=== PATIENT | female | born 2000 | race Caucasian/White ===

== ENCOUNTER → 2020-08-04 11:53 | Outpatient (BNVA) | payer MEDICAID, SELFPAY | PROVIDERS: Visit Provider Obstetrics & Gynecology | DX: Z32.01 Encounter for pregnancy test, result positive (principal) | CPT/HCPCS: 99202 ==

== ENCOUNTER → 2020-08-05 14:45 | Outpatient (BNVA) | payer MEDICAID, SELFPAY | PROVIDERS: Visit Provider Obstetrics & Gynecology ==

== ENCOUNTER 2020-08-10 14:50 | Outpatient (REF) | payer MEDICAID, SELFPAY ==
--- NOTE | ~2020-08-10 | US_ITS ---
EXAMINATION: US OBSTETRICAL ULTRASOUND CLINICAL INFORMATION: Question ectopic . COMPARISON: None. LMP: 06/24/2020. Gestational age by maternal dates is 6 weeks and 5 days. Estimated date of delivery by maternal dates is 03/31/2021. TECHNIQUE: Ultrasound of the maternal pelvis is performed using transabdominal transducer. M-mode Doppler is also performed. FINDINGS: There is a single intrauterine gestational sac with visible yolk sac, embryo/fetus, and cardiac activity. There is no significant subchorionic hemorrhage or hematoma. HR: 142 beats per minute. CRL (crown rump length): 0.59 cm (6 weeks and 3 days +/- 4 days). JUWAN (estimated date of delivery): 04/02/2021 +/- 4 days. MATERNAL ADNEXA: The right maternal ovary measures 1.4 x 1.1 x 1.0 cm. The left maternal ovary measures 2.5 x 1.8 x 1.4 cm. There is no significant maternal adnexal mass. No maternal pelvic ascites. US/US OB <= 14 weeks fetus IMPRESSION: 1. Single intrauterine gestation with ultrasound gestational age of 6 weeks and 3 days +/- 4 days. 2. Estimated date of delivery is 04/02/2021 +/- 4 days. 3. No maternal adnexal mass or pelvic ascites.
== END 2020-08-10 14:51 | disposition home or self-care (01) ==
LOC: HO.US 14:50
PROVIDERS: Visit Provider Obstetrics & Gynecology
DX: O26.891 Other specified pregnancy related conditions, first trimester (principal); R10.9 Unspecified abdominal pain; Z3A.01 Less than 8 weeks gestation of pregnancy; Z64.0 Problems related to unwanted pregnancy
CPT/HCPCS: 76801

== ENCOUNTER → 2020-09-03 11:15 | Day surgery (SDC) | payer MEDICAID, SELFPAY ==
--- NOTE | 2020-09-03 11:43 | PC.NURSE ---
Patient reports eating ramen noodles at 8am. Anesthesia Vince & Dr Nguyễn notified. Case to be cancelled. Patient notified by Ansley
== END | disposition home or self-care (01) ==
PROVIDERS: Visit Provider Obstetrics & Gynecology
DX: Z33.2 Encounter for elective termination of pregnancy (principal); Z53.8 Procedure and treatment not carried out for other reasons

== ENCOUNTER 2021-02-01 23:03 | Emergency (ER) | payer OTHER, MEDICAID, SELFPAY ==
[2021-02-01 23:49] VITALS: BP 101/55; PULSE 77; RESP 16; TEMP 36.8; O2SAT 99; BMI 25.4
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
--- NOTE | 2021-02-02 00:27 | PC.NURSE ---
Reviewed Discharge instructions and medications. Pt verbalized understanding. pt discharge home. No distress at discharge.
== END 2021-02-02 00:28 | disposition home or self-care (01) ==
PROVIDERS: Emergency Provider Emergency Medicine
DX: M54.50 Low back pain, unspecified (principal); Z79.899 Other long term (current) drug therapy
CPT/HCPCS: 99283; 99284

== ENCOUNTER 2022-04-26 10:41 | Emergency (ER) | payer MEDICAID, SELFPAY ==
[2022-04-26 10:46] VITALS: BP 143/103; PULSE 112; RESP 18; TEMP 37.1; O2SAT 100; BMI 22.0
--- NOTE | 2022-04-26 10:50 | ECG_ITS ---
Test Reason : CP Blood Pressure : / mmHG Vent. Rate : 113 BPM Atrial Rate : 113 BPM P-R Int : 140 ms QRS Dur : 076 ms QT Int : 338 ms P-R-T Axes : 078 099 000 degrees QTc Int : 463 ms Sinus tachycardia Right atrial enlargement Rightward axis Nonspecific ST and T wave abnormality Abnormal ECG No previous ECGs available Referred By: Generic ED Physician Electronically Signed By:CON GALINDO
[2022-04-26 11:11] LABS: Basophils Percent Auto 0.3 % (0-2); Eosinophils Absolute Auto 0.1 X10*3/uL (0.0-0.4); Eosinophils Percent Auto 0.5 % (0-4); Hematocrit 44.3 % (37.0-47.0); Hemoglobin 15.3 g/dl (12.0-16.0); Imm Gran Abs Auto 0.05 X10*3/uL (0.00-0.03); Imm Gran Pct Auto 0.3 % (0.0-0.4); Lymphocytes Absolute Auto 0.4 X10*3/uL (1.2-4.9); Lymphocytes Percent Auto 2.7 % (20-40); MANUAL DIFF FLAG SCAN; Mean Corpuscular HGB Conc 34.5 g/dl (31.0-35.0); Mean Corpuscular Hemoglobin 30.4 pg (27.0-33.0); Mean Corpuscular Volume 87.9 fL (80.0-98.0); Mean Platelet Volume 8.9 fL (9.4-12.3); Monocytes Absolute Auto 0.5 X10*3/uL (0.1-1.2); Monocytes Percent Auto 3.5 % (2-11); Neutrophils Absolute Auto 14.1 x10*3/uL (2.0-8.3); Neutrophils Percent Auto 92.7 % (45-73); Platelet Count 460 X10*3/uL (160-400); Red Blood Count 5.04 X10*6/uL (4.20-5.50); Red Cell Distribution Width 12.1 % (11.0-16.0); SCAN SMEAR FLAG 1; White Blood Count 15.2 X10*3/uL (4.8-10.8)
[2022-04-26 11:35] LABS: Alanine Aminotransferase 14 U/L (0-31); Albumin Level 4.9 g/dL (3.5-5.0); Alkaline Phosphatase 62 U/L (39-117); Anion Gap 19 (12-20); Aspartate Amino Transferase 19 U/L (5-31); Bilirubin Direct 0.2 mg/dL (0.0-0.5); Bilirubin Total 0.9 mg/dL (0.0-1.0); Blood Urea Nitrogen 15 mg/dL (9-16); Calcium 10.4 mg/dL (8.4-10.2); Carbon Dioxide 18 mmol/L (22-29); Chloride 107 mmol/L (96-108); Creatinine Clr Calc Pharmacy 73.1; Estimated Glomerular Filt Rate > 60; Glucose Random 118 mg/dL (60-115); Lipase 23 U/L (8-78); Sodium 140 mmol/L (135-145); Total Protein 8.3 g/dL (6.5-8.0)
[2022-04-26 11:36] LABS: SLIDE REVIEW VERIFIED
[2022-04-26 11:37] LABS: HCG Quantitative < 2 mIU/mL; Troponin-I High Sensitivity < 3.5 ng/L (<3.5-17.0)
[2022-04-26 12:29] VITALS: BP 96/58; PULSE 110; RESP 22; O2SAT 99
[2022-04-26] MEDS: 0.9 % Sodium Chloride 1,000 ML 999 ML IVCONT (13:17)
[2022-04-26] MEDS: ondansetron HCL 4 MG/2 ML VIAL IVPUSH (13:18)
[2022-04-26] MEDS: diphenhydrAMINE HCL 50 MG/ML VIAL 25 MG IVPUSH (13:19)
[2022-04-26] MEDS: Ketorolac Tromethamine 30 MG/ML VIAL IVPUSH (13:19)
--- NOTE | 2022-04-26 13:26 | PC.NURSE ---
Pt medicated as charted. Ice chips given. Sister at bedside, warm blanket provided
--- NOTE | 2022-04-26 13:55 | ED.ABDPAIN ---
HPI - Abdominal Pain General Chief Complaint: Abdominal Pain Stated Complaint: N/V/D Time Seen by Provider: 04/26/22 11:44 Source: patient and family Mode of arrival: ambulatory Limitations: no limitations History of Present Illness HPI narrative: 21yoF with no Sig PMHx who is presenting to the ER with complaints of sudden onset of nausea/vomiting/diarrhea with diffuse abdominal pain that radiates up to her chest that started around 04:00 prior to arrival. Reports that her friend at bedside had similar symptoms yesterday and was actually seen here and diagnosed gastroenteritis. She reports associated chills. She denies any measured fevers, dizziness, neck pain/stiffness, sore throat, nasal congestion, cough, palpitations, paresthesias, back pain, flank pain, dysuria, hematuria, abnormal vaginal discharge, black or bloody stools, constipation, possible bad food exposure, recent antibiotic usage, recent travel or any other symptoms complaints or concerns at this time. MD elicited complaint: abdominal pain Pertinent past history: none Onset (ago): hour(s) (Since 04:00 prior to arrive) Pain Consistency: constant Location: diffuse Severity: mild Quality: cramping Radiation: chest Migration to: no migration Exacerbating factors: eating Relieving factors: nothing Context: sick contacts (Friend at bedside was seen here yesterday for same complaint and had similar symptoms) Associated symptoms: nausea, vomiting, diarrhea and chills Related Data Previous Rx's Medication Instructions Recorded acetaminophen 650 mg 650 mg PO Q8H #60 tabs 09/02/20 tablet,extended release ibuprofen 800 mg tablet 800 mg PO Q8H #60 tabs 09/02/20 oxycodone 5 mg capsule 5 mg PO Q6H PRN pain #10 caps 09/02/20 cyclobenzaprine 10 mg tablet 10 mg PO TID PRN pain #18 tabs 02/02/21 ibuprofen 400 mg tablet 400 mg PO Q6H PRN pain #28 tabs 02/02/21 diphenhydramine HCl 25 mg capsule 25 mg PO Q8H PRN nausea and 04/26/22 (Benadryl) vomiting #14 caps ketorolac 10 mg tablet 10 mg PO Q8H #14 tabs 04/26/22 ondansetron HCl 4 mg tablet 4 mg PO Q8H #14 tabs 04/26/22 Allergies Allergy/AdvReac Type Severity Reaction Status Date / Time No Known Allergies Allergy Verified 08/05/20 14:45 Review of Systems Review of Systems Constitutional : No Fever, + Chills, No Night Sweats, + Fatigue, + Malaise Cardiovascular : No Chest Pain, No SOB Respiratory : No Cough, No Sputum, No Wheezing, No Dyspnea Gastrointestinal : + Nausea, + Vomiting, + Diarrhea, + abdominal Pain, No Hematochezia, No Melena Genitourinary : No irregular bleeding, No Dysuria, No Urinary Frequency, No Hematuria,No Urinary Incontinence, No Urgency, No Flank Pain Musculoskeletal : No joint pain, + Myalgias, No Joint Swelling Skin : No Skin Lesions, No rash Neuro : No Weakness, No Numbness, No Paresthesias, No Loss of Consciousness, No Dizziness, No Headache Heme/Lymph: No Lymphadenopathy Endocrine : No Temperature Intolerance Yes all other systems are reviewed and are negative [facility] Past Medical History Attestation statement: The following information was validated with the patient. Source: old records reviewed, obtained from family and nursing notes reviewed Family History Family History Mother Cancer Social History Social History Alcohol intake: current Alcohol intake frequency: holidays/special occasions only Patient Tobacco Use Status: Never used Tobacco Smoked in Last 30 Days: No Use of substances other than those prescribed or required for medical reasons: Yes Substance Use Type: Marijuana Advance Directives: No Advance Directives Information Provided: Yes Physical Exam ED Vital Signs: Vital Signs - 24 hr 04/26/22 10:46 04/26/22 12:29 04/26/22 14:11 Temperature 98.7 F 98.1 F Pulse Rate 112 H 110 H 89 Respiratory Rate 18 22 H 16 Blood Pressure 143/103 H 96/58 L 99/55 L Pulse Oximetry 100 99 98 Oxygen Delivery Method Room Air Room Air Room Air BMI result Body Mass Index 22.0 Vital signs have been reviewed blood pressure hypertensive 143/103. Patient tachycardic at 112. Otherwise all other vitals are within normal limits. Appearance: Alert. Oriented X3. No acute distress. Head: Normal external exam. Normocephalic. Eyes: PERRLA. EOMI. Conjunctiva and sclera normal. Eyelids normal. ENT: Pharynx normal. Uvula midline. Moist mucous membranes. No trismus noted. No drooling noted. No muffled voice noted. Neck: Normal inspection. Neck supple. FROM. No adenopathy. No meningeal signs. CVS: Normal heart rate and rhythm. Heart sound normal. No murmurs noted. Pulses normal throughout. Respiratory: No respiratory distress. Painless inspiration. Breath sounds normal. No wheezes/rales/rhonchi noted. Chest nontender. No accessory muscle usage noted or decreased air movement noted. Abdomen: Soft and nontender. Nondistended. No guarding. No rigidity. Bowel sounds normal in all 4 quadrants. No distention noted. No organomegaly noted. No visible injury noted. No rebound tenderness. Negative Rovsing sign. Negative obturator's sign. Negative psoas sign. Negative Nagel sign. Back: No CVA tenderness. Full range of motion noted. Skin: Skin warm and dry. Normal skin color. Normal skin turgor. No rashes/lesions/lacerations noted. Extremities: Extremities exhibit normal range of motion. Extremities nontender. Neuro: Oriented X 3. No motor deficit. No sensory deficit. Reflexes normal. Normal steady gait. CN's II-XII intact bilaterally? Course Course Course Narrative: 13pm - 21yoF with no Sig PMHx who is presenting to the ER with complaints of sudden onset of nausea/vomiting/diarrhea with diffuse abdominal pain that radiates up to her chest that started around 04:00 prior to arrival. Reports that her friend at bedside had similar symptoms yesterday and was actually seen here and diagnosed gastroenteritis. She reports associated chills. She denies any measured fevers, dizziness, neck pain/stiffness, sore throat, nasal congestion, cough, palpitations, paresthesias, back pain, flank pain, dysuria, hematuria, abnormal vaginal discharge, black or bloody stools, constipation, possible bad food exposure, recent antibiotic usage, recent travel or any other symptoms complaints or concerns at this time. This patient presents with nausea, vomiting & diarrhea. Differential diagnoses includes possible acute gastroenteritis. Abdominal exam without peritoneal signs. Currently euvolemic without evidence of dehydration. No evidence of surgical abdomen or other acute medical emergency including bowel obstruction, viscus perforation, vascular catastrophe, atypical appendicitis, acute cholecystitis at this time. Presentation not consistent with other acute, emergent causes of vomiting / diarrhea at this time. No indication for abdominal imaging. Labs reviewed due to they were obtained while she was in triage and patient with leukocytosis of 15,000, platelet count 101718, carbon dioxide 18, random glucose 118, calcium 10.4, total protein 8.3. Otherwise all other labs are within normal limits. Plan: Will add COVID/RSV/flu swab. Provide symptomatic treatment with IV fluids, 4 mg of Zofran, 25 mg of Benadryl and 30 mg of IV Toradol and re-evaluate. Reevaluation(s) Reevaluation #1: Patient negative for COVID/RSV/flu. Reports she feels much better is requesting to go home she does not want to be admitted. She is tolerating p.o. fluids. Will DC home with symptomatic treatment for gastroenteritis and instructions return if any new or worsening symptoms. Patient understands agrees with this plan. Time: 15:00 Medical Decision Making Lab Data MDM Lab Attestation statement: I reviewed the patient's lab results. 04/26/22 10:59 04/26/22 10:59 Labs: Lab Results 04/26/22 04/26/22 04/26/22 Range/Units 10:59 10:59 10:59 WBC 15.2 H (4.8-10.8) X10*3/uL RBC 5.04 (4.20-5.50) X10*6/uL Hgb 15.3 (12.0-16.0) g/dl Hct 44.3 (37.0-47.0) % MCV 87.9 (80.0-98.0) fL MCH 30.4 (27.0-33.0) pg MCHC 34.5 (31.0-35.0) g/dl RDW 12.1 (11.0-16.0) % Plt Count 460 H (160-400) X10*3/uL MPV 8.9 L (9.4-12.3) fL Immature Gran % (Auto) 0.3 (0.0-0.4) % Neut % (Auto) 92.7 H (45-73) % Lymph % (Auto) 2.7 L (20-40) % [place] % (Auto) 3.5 (2-11) % Eos % (Auto) 0.5 (0-4) % Baso % (Auto) 0.3 (0-2) % Lymph # (Auto) 0.4 L (1.2-4.9) X10*3/uL [place] # (Auto) 0.5 (0.1-1.2) X10*3/uL Eos # (Auto) 0.1 (0.0-0.4) X10*3/uL Baso # (Auto) 0.0 (0.0-0.2) X10*3/uL Abs Immat Gran (auto) 0.05 H (0.00-0.03) X10*3/uL Absolute Neuts (auto) 14.1 H (2.0-8.3) x10*3/uL Absolute Nucleated RBC 0.000 (0.0-0.012) X10*3/uL Nucleated RBC % (auto) 0.0 (0.0-0.2) /100WBC Smear Tech's Comments VERIFIED Sodium 140 (135-145) mmol/L Potassium 4.0 (3.3-5.1) mmol/L Chloride 107 (96-108) mmol/L Carbon Dioxide 18 L (22-29) mmol/L Anion Gap 19 (12-20) BUN 15 (9-16) mg/dL Creatinine 0.83 (0.5-1.4) mg/dL Estim Creat Clear Calc 73.1 Estimated GFR > 60 Random Glucose 118 H (60-115) mg/dL Calcium 10.4 H (8.4-10.2) mg/dL Total Bilirubin 0.9 (0.0-1.0) mg/dL Direct Bilirubin 0.2 (0.0-0.5) mg/dL AST 19 (5-31) U/L ALT 14 (0-31) U/L Alkaline Phosphatase 62 (39-117) U/L Troponin I High Sens < 3.5 (<3.5-17.0) ng/L Total Protein 8.3 H (6.5-8.0) g/dL Albumin 4.9 (3.5-5.0) g/dL Lipase 23 (8-78) U/L Beta HCG, Quant < 2 mIU/mL Urine Color Urine Appearance Urine pH (5.0-9.0) Ur Specific [place] (1.005-1.025) Urine Protein (Neg-Trace) mg/dL Urine Glucose (UA) (Negative) mg/dL Urine Ketones (Negative) mg/dL Urine Blood (Negative) Urine Nitrite (Negative) Ur Leukocyte Esterase (Negative) Urine RBC (0-2) /HPF Urine WBC (0-5) /HPF Ur Squamous Epith Cells (0-2) /HPF Urine Bacteria (None Seen) Hyaline Casts (0-2) /LPF Influenza Type A (PCR) (Negative) Influenza Type B (PCR) (Negative) RSV RNA Qual (PCR) (Negative) SARS-CoV-2 RNA (RT-PCR) (Negative) 04/26/22 04/26/22 Range/Units 13:20 14:14 WBC (4.8-10.8) X10*3/uL RBC (4.20-5.50) X10*6/uL Hgb (12.0-16.0) g/dl Hct (37.0-47.0) % MCV (80.0-98.0) fL MCH (27.0-33.0) pg MCHC (31.0-35.0) g/dl RDW (11.0-16.0) % Plt Count (160-400) X10*3/uL MPV (9.4-12.3) fL Immature Gran % (Auto) (0.0-0.4) % Neut % (Auto) (45-73) % Lymph % (Auto) (20-40) % [place] % (Auto) (2-11) % Eos % (Auto) (0-4) % Baso % (Auto) (0-2) % Lymph # (Auto) (1.2-4.9) X10*3/uL [place] # (Auto) (0.1-1.2) X10*3/uL Eos # (Auto) (0.0-0.4) X10*3/uL Baso # (Auto) (0.0-0.2) X10*3/uL Abs Immat Gran (auto) (0.00-0.03) X10*3/uL Absolute Neuts (auto) (2.0-8.3) x10*3/uL Absolute Nucleated RBC (0.0-0.012) X10*3/uL Nucleated RBC % (auto) (0.0-0.2) /100WBC Smear Tech's Comments Sodium (135-145) mmol/L Potassium (3.3-5.1) mmol/L Chloride (96-108) mmol/L Carbon Dioxide (22-29) mmol/L Anion Gap (12-20) BUN (9-16) mg/dL Creatinine (0.5-1.4) mg/dL Estim Creat Clear Calc Estimated GFR Random Glucose (60-115) mg/dL Calcium (8.4-10.2) mg/dL Total Bilirubin (0.0-1.0) mg/dL Direct Bilirubin (0.0-0.5) mg/dL AST (5-31) U/L ALT (0-31) U/L Alkaline Phosphatase (39-117) U/L Troponin I High Sens (<3.5-17.0) ng/L Total Protein (6.5-8.0) g/dL Albumin (3.5-5.0) g/dL Lipase (8-78) U/L Beta HCG, Quant mIU/mL Urine Color Dark Yellow Urine Appearance Cloudy Urine pH 5.5 (5.0-9.0) Ur Specific [place] >= 1.030 H (1.005-1.025) Urine Protein 100 (2+) H (Neg-Trace) mg/dL Urine Glucose (UA) Negative (Negative) mg/dL Urine Ketones >=160 (Negative) mg/dL Urine Blood Negative (Negative) Urine Nitrite Negative (Negative) Ur Leukocyte Esterase Trace H (Negative) Urine RBC 3-5 H (0-2) /HPF Urine WBC 0-5 (0-5) /HPF Ur Squamous Epith Cells 11-20 (0-2) /HPF Urine Bacteria Trace (None Seen) Hyaline Casts 3-5 (0-2) /LPF Influenza Type A (PCR) NEGATIVE (Negative) Influenza Type B (PCR) NEGATIVE (Negative) RSV RNA Qual (PCR) NEGATIVE (Negative) SARS-CoV-2 RNA (RT-PCR) NEGATIVE (Negative) Independent Historian Clinical information obtained from an independent historian. History obtained from or confirmed by: Friend Prescription Management I considered prescription management with: Pain Medication Medications Administered Discontinued Medications Generic Name Dose Route Start Last Admin Trade Name Freq PRN Reason Stop Dose Admin Diphenhydramine HCl 25 mg 04/26/22 13:07 04/26/22 13:19 Diphenhydramine Hcl 50 Mg/Ml Vial IVPUSH 04/26/22 13:08 25 mg ONCE ONE Administration Sodium Chloride 1,000 mls @ 999 mls/hr 04/26/22 13:00 04/26/22 14:51 Ns IVCONT 04/26/22 14:00 Infused .Q1H1M MARISA Infusion Ketorolac Tromethamine 30 mg 04/26/22 13:07 04/26/22 13:19 Ketorolac Tromethamine 30 Mg/Ml Vial IVPUSH 04/26/22 13:08 30 mg ONCE ONE Administration Ondansetron HCl 4 mg 04/26/22 13:00 04/26/22 13:18 Ondansetron Hcl 4 Mg/2 Ml Vial IVPUSH 04/26/22 13:01 4 mg ONCE ONE Administration Discharge Plan Discharge Clinical Impression: Gastroenteritis Patient Disposition: Home, Self-Care Instructions: Gastroenteritis (ED) Prescriptions: New ondansetron HCl 4 mg tablet 4 mg PO Q8H Qty: 14 0RF diphenhydramine HCl [Benadryl] 25 mg capsule 25 mg PO Q8H PRN (Reason: nausea and vomiting) Qty: 14 0RF ketorolac 10 mg tablet 10 mg PO Q8H Qty: 14 0RF Rx Instructions: First dose given in the ER by IV and patient tolerated well No Action ibuprofen 800 mg tablet 800 mg PO Q8H Qty: 60 1RF acetaminophen 650 mg tablet extended release 650 mg PO Q8H Qty: 60 1RF oxycodone 5 mg capsule 5 mg PO Q6H PRN (Reason: pain) Qty: 10 0RF Rx Instructions: Take in addition to ibuprofen and tylenol as needed for breakthrough pain ibuprofen 400 mg tablet 400 mg PO Q6H PRN (Reason: pain) Qty: 28 0RF cyclobenzaprine 10 mg tablet 10 mg PO TID PRN (Reason: pain) Qty: 18 0RF Rx Instructions: side effect is drowsiness. Do not take at work or while driving. Referrals: Physician,Unknown J [Primary Care Provider] - (your pcp as needed)
[2022-04-26 14:07] LABS: Influenza A PCR NEGATIVE (Negative); Influenza B PCR NEGATIVE (Negative); Resp Syncy Virus RNA Qual PCR NEGATIVE (Negative); SARS COV2 PCR INHOUSE NEGATIVE (Negative)
[2022-04-26 14:11] VITALS: BP 99/55; PULSE 89; RESP 16; TEMP 36.7; O2SAT 98
[2022-04-26 14:21] LABS: Appearance Urine Cloudy; Color Urine Dark Yellow; Glucose Urine UA Negative (Negative); Leukocyte Esterase Urine Trace (Negative); Nitrite Urine Negative (Negative); PH 5.5 (5.0-9.0); Specific Gravity - Urine >= 1.030 (1.005-1.025); UMIC TRIGGER UACC YES; Urine Blood Negative (Negative); Urine Ketones >=160 mg/dL (Negative); Urine Protein 100 (2+) mg/dL (Neg-Trace)
[2022-04-26 14:24] LABS: Bacteria Urine Trace (None Seen); WBC Urine 0-5 /HPF (0-5)
--- NOTE | 2022-04-26 14:54 | PC.NURSE ---
report received from SARITHA Early Pt resting comfortably on stretcher 0/10 pain, states she is ready to go. GLENDA cui
== END 2022-04-26 15:24 | disposition home or self-care (01) ==
PROVIDERS: Physician Assistant Medical; Emergency Provider Emergency Medicine
DX: K52.9 Noninfective gastroenteritis and colitis, unspecified (principal); R11.2 Nausea with vomiting, unspecified; Z20.822 Contact with and (suspected) exposure to COVID-19; Z20.828 Contact with and (suspected) exposure to other viral communicable diseases; F12.90 Cannabis use, unspecified, uncomplicated
CPT/HCPCS: 0241U; 36415; 80053; 81001; 82248; 83690; 84484; 84702; 85025; 93005; 96361; 96374; 96375; 99284; 99285; J1200; J1885; J2405

== ENCOUNTER 2022-05-10 15:43 | Emergency (ER) | payer MEDICAID, SELFPAY ==
[2022-05-10 15:48] VITALS: BP 101/62; PULSE 82; RESP 18; TEMP 36.6; O2SAT 98; BMI 22.0
--- NOTE | 2022-05-10 15:51 | ED_ITS ---
HPI - Abdominal Pain General Chief Complaint: Abdominal Pain <Ivon Gallo CNP - Last Filed: 05/10/22 15:54> Stated Complaint: Abdominal pain/Vomiting <Ivon Gallo CNP - Last Filed: 05/10/22 15:54> Time Seen by Provider: 05/10/22 18:14 <Ivon Gallo CNP - Last Filed: 05/10/22 15:54> Source: patient <Charly PedersonDO anika - Last Filed: 05/10/22 18:24> Mode of arrival: ambulatory <Charly Butt DO - Last Filed: 05/10/22 18:24> Limitations: no limitations <Charly Butt DO - Last Filed: 05/10/22 18:24> History of Present Illness HPI narrative: 20-year-old female presents to the emergency room complaining of 2 days of epigastric pain patient states that today she [facility] something with again it in she started having vomiting and diarrhea. States her most recent episode of diarrhea was 2 hours ago. Most recent episode of vomiting was 2 hours ago no bloody non green not black. Patient denies fevers chills she states her pain is subsided and she has been here for several hours she denies any falls cough fever <Charly Butt DO - Last Filed: 05/10/22 18:24> MD elicited complaint: abdominal pain <Charly Butt DO - Last Filed: 05/10/22 18:24> Related Data Home Medications: Previous Rx's Medication Instructions Recorded acetaminophen 650 mg 650 mg PO Q8H #60 tabs 09/02/20 tablet,extended release ibuprofen 800 mg tablet 800 mg PO Q8H #60 tabs 09/02/20 oxycodone 5 mg capsule 5 mg PO Q6H PRN pain #10 caps 09/02/20 cyclobenzaprine 10 mg tablet 10 mg PO TID PRN pain #18 tabs 02/02/21 ibuprofen 400 mg tablet 400 mg PO Q6H PRN pain #28 tabs 02/02/21 diphenhydramine HCl 25 mg capsule 25 mg PO Q8H PRN nausea and 04/26/22 (Benadryl) vomiting #14 caps ketorolac 10 mg tablet 10 mg PO Q8H #14 tabs 04/26/22 ondansetron HCl 4 mg tablet 4 mg PO Q8H #14 tabs 04/26/22 ondansetron 4 mg disintegrating 4 mg PO Q6H #14 tabs 05/10/22 tablet <Ivon Gallo CNP - Last Filed: 05/10/22 15:54> Allergies/Adverse Reactions: Allergies Allergy/AdvReac Type Severity Reaction Status Date / Time No Known Allergies Allergy Verified 08/05/20 14:45 <Ivon Gallo CNP - Last Filed: 05/10/22 15:54> Review of Systems Review of Systems Review of systems: General: Patient denies any fever chills recent illness or falls Musculoskeletal: Denies back pain or body aches or other injuries HEENT: denies headache, runny nose, ear pain Respiratory: denies shortness of breath, cough Cardiovascular: no chest pain or palpitations : denies dysuria, frequency Abdomen: no nausea vomiting denies abdominal pain Extremities: no swelling, no pain Skin: no diaphoresis <Charly Butt DO - Last Filed: 05/10/22 18:24> Yes all other systems are reviewed and are negative <Charly Butt DO - Last Filed: 05/10/22 18:24> [facility] Family History Family History: Family History Mother Cancer <Ivon Gallo CNP - Last Filed: 05/10/22 15:54> Social History Social History: Social History Alcohol intake: current Alcohol intake frequency: holidays/special occasions only Patient Tobacco Use Status: Never used Tobacco Substance Use Type: Marijuana Advance Directives: No Advance Directives Information Provided: No <Ivon Gallo CNP - Last Filed: 05/10/22 15:54> Physical Exam ED Vital Signs: Vital Signs - 24 hr 05/10/22 15:48 Temperature 97.9 F Pulse Rate 82 Respiratory Rate 18 Blood Pressure 101/62 Pulse Oximetry 98 Oxygen Delivery Method Room Air BMI result Body Mass Index 22.0 <Ivon Gallo CNP - Last Filed: 05/10/22 15:54> Vital Signs - 24 hr 05/10/22 15:48 Temperature 97.9 F Pulse Rate 82 Respiratory Rate 18 Blood Pressure 101/62 Pulse Oximetry 98 Oxygen Delivery Method Room Air BMI result Body Mass Index 22.0 <Charly Butt DO - Last Filed: 05/10/22 18:24> General: Well-appearing well-nourished in no signs of distress HEENT: Normocephalic atraumatic Neck: No signs of JVD, no masses no tenderness or lymphadenopathy Cardiovascular: Regular rate and rhythm Respiratory: Clear to auscultation bilaterally Abdomen: Soft nontender no masses Extremities: Normal pedal pulses no signs of edema Skin: Dry warm no rashes Back: No tenderness full ROM <Charly Butt DO - Last Filed: 05/10/22 18:24> Course Course Course Narrative: This is an RME: Additional HPI, ROS, PE not included below will be deferred to primary provider. Patient is a 21-year-old female presenting to the emergency department for evaluation of abdominal pain. Complaining of Upper abdominal pain, onset 2 days ago. Also reporting dysuria, recently treated for UTI, completed a course of antibiotics with complete resolution of symptoms until a few days ago. Had a single episode of vomiting that occurred just prior to arrival. LMP 04/10/2022. Plan: labs, urinalysis, viral testing <Ivon Gallo CNP - Last Filed: 05/10/22 15:54> Medical Decision Making Medical Decision Making [facility] Narrative: patient has a completely benign belly exam I think is likely gastritis just his patient's CT and I do feel comfortable discharging the patient home give her some Zofran Pepcid Maalox and have her follow-up with her doctor. <Charly Butt DO - Last Filed: 05/10/22 18:24> Differential Diagnosis Differential Diagnoses: The differential diagnosis associated with the presentation includes <Charly Butt DO - Last Filed: 05/10/22 18:24> acute abdominal injury gastroenteritis <Charly Butt DO - Last Filed: 05/10/22 18:24> Admission/Observation Consideration of admission/observation: Escalation of care including admission/observation considered <Charly Butt DO - Last Filed: 05/10/22 18:24> Lab Data [facility] Lab Attestation statement: I reviewed the patient's lab results. <Charly Butt, DO - Last Filed: 05/10/22 18:24> Result Diagrams: 05/10/22 15:59 05/10/22 15:59 <Ivon Gallo CNP - Last Filed: 05/10/22 15:54> Labs: Lab Results 05/10/22 05/10/22 05/10/22 Range/Units 15:57 15:57 15:59 WBC 11.1 H (4.8-10.8) X10*3/uL RBC 4.81 (4.20-5.50) X10*6/uL Hgb 14.1 (12.0-16.0) g/dl Hct 42.6 (37.0-47.0) % MCV 88.6 (80.0-98.0) fL MCH 29.3 (27.0-33.0) pg MCHC 33.1 (31.0-35.0) g/dl RDW 12.6 (11.0-16.0) % Plt Count 432 H (160-400) X10*3/uL MPV 8.6 L (9.4-12.3) fL Immature Gran % (Auto) 0.3 (0.0-0.4) % Neut % (Auto) 81.8 H (45-73) % Lymph % (Auto) 8.5 L (20-40) % [place] % (Auto) 6.6 (2-11) % Eos % (Auto) 2.3 (0-4) % Baso % (Auto) 0.5 (0-2) % Lymph # (Auto) 0.9 L (1.2-4.9) X10*3/uL [place] # (Auto) 0.7 (0.1-1.2) X10*3/uL Eos # (Auto) 0.3 (0.0-0.4) X10*3/uL Baso # (Auto) 0.1 (0.0-0.2) X10*3/uL Abs Immat Gran (auto) 0.03 (0.00-0.03) X10*3/uL Absolute Neuts (auto) 9.1 H (2.0-8.3) x10*3/uL Absolute Nucleated RBC 0.000 (0.0-0.012) X10*3/uL Nucleated RBC % (auto) 0.0 (0.0-0.2) /100WBC Sodium (135-145) mmol/L Potassium (3.3-5.1) mmol/L Chloride (96-108) mmol/L Carbon Dioxide (22-29) mmol/L Anion Gap (12-20) BUN (9-16) mg/dL Creatinine (0.5-1.4) mg/dL Estim Creat Clear Calc Estimated GFR Random Glucose (60-115) mg/dL Calcium (8.4-10.2) mg/dL Total Bilirubin (0.0-1.0) mg/dL AST (5-31) U/L ALT (0-31) U/L Alkaline Phosphatase (39-117) U/L Total Protein (6.5-8.0) g/dL Albumin (3.5-5.0) g/dL Lipase (8-78) U/L Urine Color Urine Appearance Urine pH (5.0-9.0) Ur Specific [place] (1.005-1.025) Urine Protein (Neg-Trace) mg/dL Urine Glucose (UA) (Negative) mg/dL Urine Ketones (Negative) mg/dL Urine Blood (Negative) Urine Nitrite (Negative) Ur Leukocyte Esterase (Negative) Urine RBC (0-2) /HPF Urine WBC (0-5) /HPF Ur Squamous Epith Cells (0-2) /HPF Urine Bacteria (None Seen) Hyaline Casts (0-2) /LPF Urine Test (NEGATIVE) COVID-19 ([place]) Negative (Negative) COVID-19 Clin Com See Note Influenza Type A ([place]) Negative (Negative) Influenza Type B ([place]GA) Negative (Negative) Influenza A & B Note See Note 05/10/22 05/10/22 05/10/22 Range/Units 15:59 16:06 16:06 WBC (4.8-10.8) X10*3/uL RBC (4.20-5.50) X10*6/uL Hgb (12.0-16.0) g/dl Hct (37.0-47.0) % MCV (80.0-98.0) fL MCH (27.0-33.0) pg MCHC (31.0-35.0) g/dl RDW (11.0-16.0) % Plt Count (160-400) X10*3/uL MPV (9.4-12.3) fL Immature Gran % (Auto) (0.0-0.4) % Neut % (Auto) (45-73) % Lymph % (Auto) (20-40) % [place] % (Auto) (2-11) % Eos % (Auto) (0-4) % Baso % (Auto) (0-2) % Lymph # (Auto) (1.2-4.9) X10*3/uL [place] # (Auto) (0.1-1.2) X10*3/uL Eos # (Auto) (0.0-0.4) X10*3/uL Baso # (Auto) (0.0-0.2) X10*3/uL Abs Immat Gran (auto) (0.00-0.03) X10*3/uL Absolute Neuts (auto) (2.0-8.3) x10*3/uL Absolute Nucleated RBC (0.0-0.012) X10*3/uL Nucleated RBC % (auto) (0.0-0.2) /100WBC Sodium 140 (135-145) mmol/L Potassium 4.0 (3.3-5.1) mmol/L Chloride 106 (96-108) mmol/L Carbon Dioxide 25 (22-29) mmol/L Anion Gap 13 (12-20) BUN 10 (9-16) mg/dL Creatinine 0.69 (0.5-1.4) mg/dL Estim Creat Clear Calc 87.9 Estimated GFR > 60 Random Glucose 80 (60-115) mg/dL Calcium 9.5 D (8.4-10.2) mg/dL Total Bilirubin 0.6 (0.0-1.0) mg/dL AST 17 (5-31) U/L ALT 13 (0-31) U/L Alkaline Phosphatase 48 (39-117) U/L Total Protein 6.9 (6.5-8.0) g/dL Albumin 4.2 (3.5-5.0) g/dL Lipase 54 (8-78) U/L Urine Color Dark Yellow Urine Appearance Turbid Urine pH 5.5 (5.0-9.0) Ur Specific [place] >= 1.030 H (1.005-1.025) Urine Protein 30 (1+) H (Neg-Trace) mg/dL Urine Glucose (UA) Negative (Negative) mg/dL Urine Ketones 15 (Negative) mg/dL Urine Blood Negative (Negative) Urine Nitrite Negative (Negative) Ur Leukocyte Esterase Trace H (Negative) Urine RBC 3-5 H (0-2) /HPF Urine WBC 11-20 H (0-5) /HPF Ur Squamous Epith Cells >20 (0-2) /HPF Urine Bacteria 4+ (None Seen) Hyaline Casts 0-2 (0-2) /LPF Urine Test NEGATIVE (NEGATIVE) COVID-19 ([place]) (Negative) COVID-19 Clin Com Influenza Type A ([place]) (Negative) Influenza Type B ([place]) (Negative) Influenza A & B Note <Ivon Gallo, [employer] ASSISTANT - Last Filed: 05/10/22 15:54> Lab Results 05/10/22 05/10/22 05/10/22 Range/Units 15:57 15:57 15:59 WBC 11.1 H (4.8-10.8) X10*3/uL RBC 4.81 (4.20-5.50) X10*6/uL Hgb 14.1 (12.0-16.0) g/dl Hct 42.6 (37.0-47.0) % MCV 88.6 (80.0-98.0) fL MCH 29.3 (27.0-33.0) pg MCHC 33.1 (31.0-35.0) g/dl RDW 12.6 (11.0-16.0) % Plt Count 432 H (160-400) X10*3/uL MPV 8.6 L (9.4-12.3) fL Immature Gran % (Auto) 0.3 (0.0-0.4) % Neut % (Auto) 81.8 H (45-73) % Lymph % (Auto) 8.5 L (20-40) % [place] % (Auto) 6.6 (2-11) % Eos % (Auto) 2.3 (0-4) % Baso % (Auto) 0.5 (0-2) % Lymph # (Auto) 0.9 L (1.2-4.9) X10*3/uL [place] # (Auto) 0.7 (0.1-1.2) X10*3/uL Eos # (Auto) 0.3 (0.0-0.4) X10*3/uL Baso # (Auto) 0.1 (0.0-0.2) X10*3/uL Abs Immat Gran (auto) 0.03 (0.00-0.03) X10*3/uL Absolute Neuts (auto) 9.1 H (2.0-8.3) x10*3/uL Absolute Nucleated RBC 0.000 (0.0-0.012) X10*3/uL Nucleated RBC % (auto) 0.0 (0.0-0.2) /100WBC Sodium (135-145) mmol/L Potassium (3.3-5.1) mmol/L Chloride (96-108) mmol/L Carbon Dioxide (22-29) mmol/L Anion Gap (12-20) BUN (9-16) mg/dL Creatinine (0.5-1.4) mg/dL Estim Creat Clear Calc Estimated GFR Random Glucose (60-115) mg/dL Calcium (8.4-10.2) mg/dL Total Bilirubin (0.0-1.0) mg/dL AST (5-31) U/L ALT (0-31) U/L Alkaline Phosphatase (39-117) U/L Total Protein (6.5-8.0) g/dL Albumin (3.5-5.0) g/dL Lipase (8-78) U/L Urine Color Urine Appearance Urine pH (5.0-9.0) Ur Specific [place] (1.005-1.025) Urine Protein (Neg-Trace) mg/dL Urine Glucose (UA) (Negative) mg/dL Urine Ketones (Negative) mg/dL Urine Blood (Negative) Urine Nitrite (Negative) Ur Leukocyte Esterase (Negative) Urine RBC (0-2) /HPF Urine WBC (0-5) /HPF Ur Squamous Epith Cells (0-2) /HPF Urine Bacteria (None Seen) Hyaline Casts (0-2) /LPF Urine Test (NEGATIVE) COVID-19 ([place]) Negative (Negative) COVID-19 Clin Com See Note Influenza Type A ([place]) Negative (Negative) Influenza Type B ([place]) Negative (Negative) Influenza A & B Note See Note 05/10/22 05/10/22 05/10/22 Range/Units 15:59 16:06 16:06 WBC (4.8-10.8) X10*3/uL RBC (4.20-5.50) X10*6/uL Hgb (12.0-16.0) g/dl Hct (37.0-47.0) % MCV (80.0-98.0) fL MCH (27.0-33.0) pg MCHC (31.0-35.0) g/dl RDW (11.0-16.0) % Plt Count (160-400) X10*3/uL MPV (9.4-12.3) fL Immature Gran % (Auto) (0.0-0.4) % Neut % (Auto) (45-73) % Lymph % (Auto) (20-40) % [place] % (Auto) (2-11) % Eos % (Auto) (0-4) % Baso % (Auto) (0-2) % Lymph # (Auto) (1.2-4.9) X10*3/uL [place] # (Auto) (0.1-1.2) X10*3/uL Eos # (Auto) (0.0-0.4) X10*3/uL Baso # (Auto) (0.0-0.2) X10*3/uL Abs Immat Gran (auto) (0.00-0.03) X10*3/uL Absolute Neuts (auto) (2.0-8.3) x10*3/uL Absolute Nucleated RBC (0.0-0.012) X10*3/uL Nucleated RBC % (auto) (0.0-0.2) /100WBC Sodium 140 (135-145) mmol/L Potassium 4.0 (3.3-5.1) mmol/L Chloride 106 (96-108) mmol/L Carbon Dioxide 25 (22-29) mmol/L Anion Gap 13 (12-20) BUN 10 (9-16) mg/dL Creatinine 0.69 (0.5-1.4) mg/dL Estim Creat Clear Calc 87.9 Estimated GFR > 60 Random Glucose 80 (60-115) mg/dL Calcium 9.5 D (8.4-10.2) mg/dL Total Bilirubin 0.6 (0.0-1.0) mg/dL AST 17 (5-31) U/L ALT 13 (0-31) U/L Alkaline Phosphatase 48 (39-117) U/L Total Protein 6.9 (6.5-8.0) g/dL Albumin 4.2 (3.5-5.0) g/dL Lipase 54 (8-78) U/L Urine Color Dark Yellow Urine Appearance Turbid Urine pH 5.5 (5.0-9.0) Ur Specific [place] >= 1.030 H (1.005-1.025) Urine Protein 30 (1+) H (Neg-Trace) mg/dL Urine Glucose (UA) Negative (Negative) mg/dL Urine Ketones 15 (Negative) mg/dL Urine Blood Negative (Negative) Urine Nitrite Negative (Negative) Ur Leukocyte Esterase Trace H (Negative) Urine RBC 3-5 H (0-2) /HPF Urine WBC 11-20 H (0-5) /HPF Ur Squamous Epith Cells >20 (0-2) /HPF Urine Bacteria 4+ (None Seen) Hyaline Casts 0-2 (0-2) /LPF Urine Test NEGATIVE (NEGATIVE) COVID-19 ([place]) (Negative) COVID-19 Clin Com Influenza Type A ([place]) (Negative) Influenza Type B ([place]) (Negative) Influenza A & B Note <Charly Butt DO - Last Filed: 05/10/22 18:24> Discharge Plan Discharge Clinical Impression: Abdominal pain, Vomiting <Ivon Gallo CNP - Last Filed: 05/10/22 15:54> Patient Disposition: Home, Self-Care <Ivon Gallo CNP - Last Filed: 05/10/22 15:54> Instructions: Acute Nausea and Vomiting (ED), Abdominal Pain (ED) <Ivon Gallo CNP - Last Filed: 05/10/22 15:54> Additional Instructions: Please call to follow up for your abdominal pain. Your labs were all nor mal. Please take zofran as needed for vomiting. <Ivon Gallo CNP - Last Filed: 05/10/22 15:54> Prescriptions: New ondansetron 4 mg tablet,disintegrating 4 mg PO Q6H Qty: 14 0RF No Action ibuprofen 800 mg tablet 800 mg PO Q8H Qty: 60 1RF acetaminophen 650 mg tablet extended release 650 mg PO Q8H Qty: 60 1RF oxycodone 5 mg capsule 5 mg PO Q6H PRN (Reason: pain) Qty: 10 0RF Rx Instructions: Take in addition to ibuprofen and tylenol as needed for breakthrough pain ondansetron HCl 4 mg tablet 4 mg PO Q8H Qty: 14 0RF diphenhydramine HCl [Benadryl] 25 mg capsule 25 mg PO Q8H PRN (Reason: nausea and vomiting) Qty: 14 0RF ketorolac 10 mg tablet 10 mg PO Q8H Qty: 14 0RF Rx Instructions: First dose given in the ER by IV and patient tolerated well ibuprofen 400 mg tablet 400 mg PO Q6H PRN (Reason: pain) Qty: 28 0RF cyclobenzaprine 10 mg tablet 10 mg PO TID PRN (Reason: pain) Qty: 18 0RF Rx Instructions: side effect is drowsiness. Do not take at work or while driving. <Ivon Gallo CNP - Last Filed: 05/10/22 15:54>
[2022-05-10 16:06] LABS: MANUAL DIFF FLAG NO
[2022-05-10 16:10] LABS: Basophils Absolute Auto 0.1 X10*3/uL (0.0-0.2); Basophils Percent Auto 0.5 % (0-2); Eosinophils Absolute Auto 0.3 X10*3/uL (0.0-0.4); Eosinophils Percent Auto 2.3 % (0-4); Hematocrit 42.6 % (37.0-47.0); Hemoglobin 14.1 g/dl (12.0-16.0); Imm Gran Abs Auto 0.03 X10*3/uL (0.00-0.03); Imm Gran Pct Auto 0.3 % (0.0-0.4); Lymphocytes Absolute Auto 0.9 X10*3/uL (1.2-4.9); Lymphocytes Percent Auto 8.5 % (20-40); Mean Corpuscular HGB Conc 33.1 g/dl (31.0-35.0); Mean Corpuscular Hemoglobin 29.3 pg (27.0-33.0); Mean Corpuscular Volume 88.6 fL (80.0-98.0); Mean Platelet Volume 8.6 fL (9.4-12.3); Monocytes Absolute Auto 0.7 X10*3/uL (0.1-1.2); Monocytes Percent Auto 6.6 % (2-11); Neutrophils Absolute Auto 9.1 x10*3/uL (2.0-8.3); Neutrophils Percent Auto 81.8 % (45-73); Platelet Count 432 X10*3/uL (160-400); Red Blood Count 4.81 X10*6/uL (4.20-5.50); Red Cell Distribution Width 12.6 % (11.0-16.0); White Blood Count 11.1 X10*3/uL (4.8-10.8)
[2022-05-10 16:16] LABS: Appearance Urine Turbid; Color Urine Dark Yellow; Glucose Urine UA Negative (Negative); Leukocyte Esterase Urine Trace (Negative); Nitrite Urine Negative (Negative); PH 5.5 (5.0-9.0); Specific Gravity - Urine >= 1.030 (1.005-1.025); UMIC TRIGGER UACC YES; Urine Blood Negative (Negative); Urine Ketones 15 mg/dL (Negative); Urine Protein 30 (1+) mg/dL (Neg-Trace)
[2022-05-10 16:23] LABS: COVID-19 Test Negative (Negative); IDNOW Serial# 55D5AD1C
[2022-05-10 16:25] LABS: Alanine Aminotransferase 13 U/L (0-31); Albumin Level 4.2 g/dL (3.5-5.0); Alkaline Phosphatase 48 U/L (39-117); Anion Gap 13 (12-20); Aspartate Amino Transferase 17 U/L (5-31); Bilirubin Total 0.6 mg/dL (0.0-1.0); Blood Urea Nitrogen 10 mg/dL (9-16); Calcium 9.5 mg/dL (8.4-10.2); Carbon Dioxide 25 mmol/L (22-29); Chloride 106 mmol/L (96-108); Creatinine Clr Calc Pharmacy 87.9; Estimated Glomerular Filt Rate > 60; Glucose Random 80 mg/dL (60-115); Lipase 54 U/L (8-78); Sodium 140 mmol/L (135-145); Total Protein 6.9 g/dL (6.5-8.0)
[2022-05-10 16:26] LABS: IDNOW Serial# 9DB6401D; Influenza B2 Negative (Negative)
[2022-05-10 16:27] LABS: Influenza A Negative (Negative)
[2022-05-10 16:33] LABS: UPreg QC Valid YES; Urine Pregnancy NEGATIVE (NEGATIVE)
[2022-05-10 16:39] LABS: Bacteria Urine 4+ (None Seen); Hyaline Casts Urine 0-2 /LPF (0-2); Squamous Epithelial Cell Urine >20 /HPF (0-2); UACC Culture Trigger YES
[2022-05-10 18:29] VITALS: BP 127/72; PULSE 89; RESP 16; TEMP 37; O2SAT 97
[2022-05-10] MEDS: Famotidine 20 MG TABLET PO (18:34)
[2022-05-10] MEDS: Magnesium Hydrox/Alum Hydrox 30 ML ORAL.SUSP PO (18:37)
[2022-05-10] MEDS: Ondansetron ODT 4 MG TAB.RAPDIS TRANSLINGU (18:37)
== END 2022-05-10 18:40 | disposition home or self-care (01) ==
PROVIDERS: Nurse Practitioner Family; Emergency Provider Student in an Organized Health Care Education/Training Program
DX: R10.13 Epigastric pain (principal); R11.2 Nausea with vomiting, unspecified; Z20.822 Contact with and (suspected) exposure to COVID-19; Z20.828 Contact with and (suspected) exposure to other viral communicable diseases; Z79.899 Other long term (current) drug therapy
CPT/HCPCS: 80053; 81001; 81025; 83690; 85025; 87086; 87502; 87635; 99283; 99284

== ENCOUNTER 2022-07-19 18:12 | Emergency (ER) | payer MEDICAID, SELFPAY ==
--- NOTE | ~2022-07-19 | XR_ITS ---
EXAMINATION: XR HAND, RIGHT CLINICAL INFORMATION: Fall with pain COMPARISON: None available. TECHNIQUE: PA, lateral, and oblique views of the right hand. FINDINGS: No fracture or dislocation. Alignment maintained. Joint spaces are maintained. The soft tissues appear unremarkable. XR/XR hand RT 2V IMPRESSION: No fracture or malalignment.
[2022-07-19 19:25] VITALS: BP 111/53; PULSE 69; RESP 20; TEMP 36.9; O2SAT 99; BMI 22.0
--- NOTE | 2022-07-19 19:26 | ED_ITS ---
HPI - Extremity Injury (Upper) General Chief Complaint: Extremity Injury, Upper Stated Complaint: finger injury Time Seen by Provider: 07/19/22 20:01 Source: patient Mode of arrival: ambulatory Limitations: no limitations History of Present Illness HPI narrative: 21 yo female healthy left hand dominant here with right hand pain after fall while play fighting today. No weakness, numbness, tingling of the hand Related Data Previous Rx's Medication Instructions Recorded acetaminophen 650 mg 650 mg PO Q8H #60 tabs 09/02/20 tablet,extended release ibuprofen 800 mg tablet 800 mg PO Q8H #60 tabs 09/02/20 oxycodone 5 mg capsule 5 mg PO Q6H PRN pain #10 caps 09/02/20 cyclobenzaprine 10 mg tablet 10 mg PO TID PRN pain #18 tabs 02/02/21 ibuprofen 400 mg tablet 400 mg PO Q6H PRN pain #28 tabs 02/02/21 diphenhydramine HCl 25 mg capsule 25 mg PO Q8H PRN nausea and 04/26/22 (Benadryl) vomiting #14 caps ketorolac 10 mg tablet 10 mg PO Q8H #14 tabs 04/26/22 ondansetron HCl 4 mg tablet 4 mg PO Q8H #14 tabs 04/26/22 ondansetron 4 mg disintegrating 4 mg PO Q6H #14 tabs 05/10/22 tablet cefuroxime axetil 250 mg tablet 250 mg PO BID 7 days #14 tabs 05/15/22 Allergies Allergy/AdvReac Type Severity Reaction Status Date / Time No Known Allergies Allergy Verified 07/19/22 19:25 Review of Systems Review of Systems: Yes all other systems are reviewed and are negative Constitutional: Constitutional: Reports no additional constitutional complaints, Denies body ache(s), Denies chills, Denies fever(s), Denies headache(s) and Denies weakness Eyes: Eyes: Reports no additional eye complaints and Denies change in vision ENT: Reports system reviewed and no additional complaints, except as documented, Denies dizziness, Denies headache(s), Denies nasal congestion, Denies nasal discharge and Denies neck pain Cardiovascular: Cardiovascular: Reports no additional cardiovascular complaints, Denies chest pain, Denies leg edema and Denies dyspnea Respiratory: Respiratory: Reports no additional respiratory complaints, Denies cough and Denies dyspnea Gastrointestinal: Gastrointestinal: Reports no additional gastrointestinal complaints, Denies abdominal pain, Denies diarrhea, Denies nausea and Denies vomiting Genitourinary: Genitourinary: Reports no additional female genitourinary complaints and Denies urinary incontinence Musculoskeletal: Musculoskeletal: Reports no additional musculoskeletal complaints, Denies back pain, Denies arthralgias, Denies joint swelling, Denies neck pain, Denies numbness and Denies tingling Integumentary/Breasts: Skin/Breast: Reports system reviewed and no additional complaints, except as docu and Denies rash Neurologic: Reports system reviewed and no additional complaints, except as documented, Denies Abnormal speech present, Denies dizziness, Denies headache(s), Denies numbness, Denies tingling and Denies weakness PMFSH Past Medical History Attestation statement: The following information was validated with the patient. Source: old records reviewed and nursing notes reviewed Family History Family History Mother Cancer Social History Social History Alcohol intake: current Alcohol intake frequency: does not drink Patient Tobacco Use Status: Never used Tobacco Substance Use Type: Marijuana Advance Directives: No Advance Directives Information Provided: No Physical Exam Vital Signs: Vital Signs: Last Vital Signs Temp 98.5 F 07/19/22 19:25 Pulse 69 07/19/22 19:25 Resp 20 07/19/22 19:25 BP 111/53 L 07/19/22 19:25 Pulse Ox 99 07/19/22 19:25 O2 Del Method Room Air 07/19/22 19:25 BMI result Body Mass Index 22.0 Const: General: cooperative, healthy appearing, comfortable and no acute distress Orientation/consciousness: patient oriented x3 Limitations: no limitations HEENT: Head: Yes normal to inspection Ears: hearing grossly normal bilaterally General nose exam: Normal external nose present Face and sinus: Yes normal facial exam Mouth: Normal oral and palatal mucosa present Throat: Yes posterior oropharynx normal Eyes: General: appearance normal, both eyes and all related structures Pupils: Equal, round and reactive pupils present Neck: Neck: Yes normal visual inspection Chest: Chest palpation & inspection: normal inspection of the chest Resp: Effort & Inspection: normal respiratory effort Auscultation: clear to auscultation bilaterally Cardio: Rate: regular rate Rhythm: regular rhythm Peripheral pulses: Peripheral pulses 2+ throughout GI: Inspection: Yes normal to inspection Palpation (GI): Soft to palpation and nontender Auscultation: normal bowel sounds Back/Spine/Pelvis: Thoracic/Lumbar Spine: thoracic and lumbar spine normal to inspection Skin: General skin exam: no rashes or lesions noted Neuro: General: patient oriented x3, no focal motor deficits and normal sensation to monofilament Cranial nerves: Yes Equal, round and reactive pupils present Cognition (Neuro): normal cognition Speech: No Abnormal sp eech present Gait exam (Neuro): Normal gait present Motor exam (neuro): 5/5 motor strength present throughout Extrem: Other: Tenderness on palpation over the right hand base of the 2nd/3rd digit with FROM. CMS intact distally Course Course Course Narrative: This is a rapid medical exam. Deferred additional HPI, ROS, PE to primary provider. 21 yo female healthy left hand dominant here with right hand pain after fall while play fighting today Will check x-rays VSS Reevaluation(s) Reevaluation #1: x-rays show no fracture, likely contusion. Recommend RICE, supportive care at home. Medical Decision Making Medical Decision Making MDM Narrative: 21 yo female healthy left hand dominant here with right hand pain after fall while play fighting today Will check x-rays Differential Diagnosis Differential Diagnoses: The differential diagnosis associated with the presentation includes fracture, contusion low concern for vascukar injury, tendon injury Independent Interpretation I performed an independent interpretation of an: Plain X-Ray Interpretation: I independently reviewed the x-ay agree with the radiologist report Radiology Impression Discussion of test interpretation with radiology: I have reviewed the radiologist's reading. Radiologist Impression: [address] [address] XRay Report Signed Patient: Ernestina Ortega MR#: [id number] : 2000 Acct:[id number] Age/Sex: 21 / F ADM Date: 07/19/22 Loc: HO.ED Attending Dr: Ordering Physician: Tessy Castañeda NP Date of Service: 07/19/22 Procedure(s): XR hand RT 2V Accession Number(s): [id number] cc: Maddy,Tessy OFFICE ASSISTANCE~ EXAMINATION: XR HAND, RIGHT CLINICAL INFORMATION: Fall with pain? COMPARISON: None available.? TECHNIQUE: PA, lateral, and oblique views of the right hand. FINDINGS: No fracture or dislocation. Alignment maintained. Joint spaces are maintained. The soft tissues appear unremarkable.? XR/XR hand RT 2V IMPRESSION: No fracture or malalignment. ? Discharge Plan Discharge Clinical Impression: Contusion of finger of right hand Patient Disposition: Home, Self-Care Instructions: Contusion in Adults (ED) Additional Instructions: Motrin or tylenol for pain ice to the area Prescriptions: No Action ibuprofen 800 mg tablet 800 mg PO Q8H Qty: 60 1RF acetaminophen 650 mg tablet extended release 650 mg PO Q8H Qty: 60 1RF oxycodone 5 mg capsule 5 mg PO Q6H PRN (Reason: pain) Qty: 10 0RF Rx Instructions: Take in addition to ibuprofen and tylenol as needed for breakthrough pain ondansetron HCl 4 mg tablet 4 mg PO Q8H Qty: 14 0RF diphenhydramine HCl [Benadryl] 25 mg capsule 25 mg PO Q8H PRN (Reason: nausea and vomiting) Qty: 14 0RF ketorolac 10 mg tablet 10 mg PO Q8H Qty: 14 0RF Rx Instructions: First dose given in the ER by IV and patient tolerated well ibuprofen 400 mg tablet 400 mg PO Q6H PRN (Reason: pain) Qty: 28 0RF cyclobenzaprine 10 mg tablet 10 mg PO TID PRN (Reason: pain) Qty: 18 0RF Rx Instructions: side effect is drowsiness. Do not take at work or while driving. ondansetron 4 mg tablet,disintegrating 4 mg PO Q6H Qty: 14 0RF cefuroxime axetil 250 mg tablet 250 mg PO BID 7 Days Qty: 14 0RF Interventions: ED Discharge Assessment Last Done: 07/19/22 20:14 Discharge Date/Time: 07/19/22 20:14
== END 2022-07-19 20:14 | disposition home or self-care (01) ==
LOC: HO.ED 20:13
PROVIDERS: Emergency Provider Emergency Medicine
DX: S60.00XA Contusion of unspecified finger without damage to nail, initial encounter (principal); W51.XXXA Accidental striking against or bumped into by another person, initial encounter; Y93.83 Activity, rough housing and horseplay; Y92.9 Unspecified place or not applicable; Y99.9 Unspecified external cause status
CPT/HCPCS: 73120; 99282; 99283

== ENCOUNTER 2022-10-15 21:32 | Emergency (ER) | payer MEDICAID, SELFPAY ==
--- NOTE | ~2022-10-15 | CT_ITS ---
EXAMINATION: CT ABDOMEN AND PELVIS WITH CONTRAST CLINICAL INFORMATION: Pain. COMPARISON: None available. TECHNIQUE: Multidetector volumetric images were obtained from the superior aspect of the liver through the pubic symphysis following administration 85 mL of Omnipaque 350 intravenous contrast. Sagittal and coronal reformatted images were obtained on the technologist's workstation. Oral contrast: No This CT examination was performed using dose optimization techniques as appropriate, variously including the following: *Automated exposure control *Adjustment of mA and/or kV according to patient size (this includes techniques or standardized protocols for targeted exams where dose is matched to indication/reason for exam; i.e. extremities or head) *Use of iterative reconstruction technique DLP: 324 mGy-cm FINDINGS: LUNG BASES: The visualized lung bases are unremarkable. LIVER, GALLBLADDER, AND BILIARY TREE: The liver is normal in size, shape, and attenuation. No focal hepatic lesion or biliary ductal dilatation is present. The gallbladder is unremarkable with no evidence of radiopaque gallstones, gallbladder wall thickening, or obvious pericholecystic inflammatory changes. PANCREAS: Unremarkable. SPLEEN: Unremarkable. ADRENAL GLANDS: Unremarkable. KIDNEYS AND URETERS: The kidneys are normal in size, shape, and attenuation. No hydronephrosis, hydroureter, or calculi seen. No perinephric stranding. BLADDER: Unremarkable. GASTROINTESTINAL TRACT: The small and large bowel are unremarkable. The appendix is unremarkable. ABDOMINAL WALL: No significant hernia is appreciated. LYMPH NODES: Normal. VASCULAR: Unremarkable. PELVIC VISCERA: Unremarkable. There is a small amount of free fluid within the pelvis. OSSEOUS STRUCTURES: Unremarkable. CT/CT abdomen pelvis w IV con IMPRESSION: No significant abnormality. Fleischner guidelines were followed.
[2022-10-15 21:45] VITALS: BP 100/61; PULSE 79; RESP 17; TEMP 36.1; O2SAT 98; BMI 24.2
[2022-10-15 22:07] LABS: MANUAL DIFF FLAG NO
[2022-10-15 22:10] LABS: Basophils Percent Auto 0.4 % (0-2); Eosinophils Absolute Auto 0.1 X10*3/uL (0.0-0.4); Hematocrit 39.4 % (37.0-47.0); Hemoglobin 13.2 g/dl (12.0-16.0); Imm Gran Abs Auto 0.04 X10*3/uL (0.00-0.03); Imm Gran Pct Auto 0.4 % (0.0-0.4); Lymphocytes Absolute Auto 1.3 X10*3/uL (1.2-4.9); Lymphocytes Percent Auto 12.7 % (20-40); Mean Corpuscular HGB Conc 33.5 g/dl (31.0-35.0); Mean Corpuscular Hemoglobin 30.1 pg (27.0-33.0); Mean Platelet Volume 8.9 fL (9.4-12.3); Monocytes Absolute Auto 0.5 X10*3/uL (0.1-1.2); Monocytes Percent Auto 4.9 % (2-11); Neutrophils Percent Auto 80.6 % (45-73); Platelet Count 404 X10*3/uL (160-400); Red Blood Count 4.38 X10*6/uL (4.20-5.50); Red Cell Distribution Width 12.4 % (11.0-16.0)
[2022-10-15 22:37] LABS: Alanine Aminotransferase 16 U/L (0-31); Albumin Level 3.9 g/dL (3.5-5.0); Alkaline Phosphatase 47 U/L (39-117); Anion Gap 13 (12-20); Aspartate Amino Transferase 25 U/L (5-31); Bilirubin Total 0.3 mg/dL (0.0-1.0); Blood Urea Nitrogen 9 mg/dL (9-16); Calcium 9.3 mg/dL (8.4-10.2); Carbon Dioxide 23 mmol/L (22-29); Chloride 106 mmol/L (96-108); Creatinine Clr Calc Pharmacy 88.1; Estimated Glomerular Filt Rate > 60; Glucose Random 113 mg/dL (60-115); HCG Quantitative < 2 mIU/mL; Lipase 13 U/L (8-78); Potassium 4.2 mmol/L (3.3-5.1); Sodium 138 mmol/L (135-145); Total Protein 7.4 g/dL (6.5-8.0)
[2022-10-16 00:59] VITALS: BP 101/51; PULSE 66; RESP 16; TEMP 37.2; O2SAT 99
[2022-10-16 01:18] LABS: COVID-19 Test Negative (Negative); IDNOW Serial# 6674DD1D
[2022-10-16 02:47] LABS: Appearance Urine Clear; Color Urine Yellow; Glucose Urine UA Negative (Negative); Leukocyte Esterase Urine Negative (Negative); Nitrite Urine Negative (Negative); Specific Gravity - Urine 1.015 (1.005-1.025); UMIC TRIGGER UACC YES; Urine Blood Moderate (2+) (Negative); Urine Ketones 15 mg/dL (Negative); Urine Protein Negative (Neg-Trace)
[2022-10-16 03:15] LABS: Bacteria Urine None Seen (None Seen); Hyaline Casts Urine 0-2 /LPF (0-2); RBC Urine 0-2 /HPF (0-2); WBC Urine 0-5 /HPF (0-5)
--- NOTE | 2022-10-16 04:23 | ED.ABDPAIN ---
HPI - Abdominal Pain General Chief Complaint: Abdominal Pain Stated Complaint: Vomiting Time Seen by Provider: 10/16/22 04:19 Source: patient Mode of arrival: ambulatory Limitations: no limitations History of Present Illness HPI narrative: Patient comes emergency room complaining of abdominal pain, vomiting starting a few hours ago. Patient denies diarrhea. Denies flank pain Related Data Previous Rx's Medication Instructions Recorded acetaminophen 650 mg 650 mg PO Q8H #60 tabs 09/02/20 tablet,extended release ibuprofen 800 mg tablet 800 mg PO Q8H #60 tabs 09/02/20 oxycodone 5 mg capsule 5 mg PO Q6H PRN pain #10 caps 09/02/20 cyclobenzaprine 10 mg tablet 10 mg PO TID PRN pain #18 tabs 02/02/21 ibuprofen 400 mg tablet 400 mg PO Q6H PRN pain #28 tabs 02/02/21 diphenhydramine HCl 25 mg capsule 25 mg PO Q8H PRN nausea and 04/26/22 (Benadryl) vomiting #14 caps ketorolac 10 mg tablet 10 mg PO Q8H #14 tabs 04/26/22 ondansetron HCl 4 mg tablet 4 mg PO Q8H #14 tabs 04/26/22 ondansetron 4 mg disintegrating 4 mg PO Q6H #14 tabs 05/10/22 tablet cefuroxime axetil 250 mg tablet 250 mg PO BID 7 days #14 tabs 05/15/22 Allergies Allergy/AdvReac Type Severity Reaction Status Date / Time No Known Allergies Allergy Verified 10/15/22 21:44 Review of Systems Review of Systems Constitutional : No Weight loss, No Fever, No Chills, No Night Sweats, No Fatigue, No Malaise ENT/Mouth : No Hearing loss, No Ear Pain, No Nasal Congestion, No Sinus Pain, No Hoarseness, No sore throat, No Rhinorrhea, No Swallowing Difficulty Eyes: No Eye Pain, No Swelling, No Redness, No Foreign Body, No Discharge, No Vision Changes Cardiovascular : No Chest Pain, No SOB, No Dyspnea on Exertion, No Orthopnea, No Edema, No Palpitations Respiratory : No Cough, No Sputum, No Wheezing, No Smoke Exposure, No Dyspnea Gastrointestinal : Complaining of nausea, vomiting, abdominal pain no diarrhea Genitourinary : no irregular bleeding, No Dysuria, No Urinary Frequency, No Hematuria, No Urinary Incontinence, No Urgency, No Flank Pain, No Urinary Flow Changes, No Hesitancy Musculoskeletal : No joint pain, No Myalgias, No Joint Swelling Skin : No Skin Lesions, No rash Neuro : No Weakness, No Numbness, No Paresthesias, No Loss of Consciousness, No Dizziness, No Headache Psych : No Anxiety/Panic, No Depression, No SI/HI/AH/VH, No Social Issues, Heme/Lymph: No Bruising, No Bleeding,No Lymphadenopathy Endocrine : No Polyuria, No Polydipsia, No Temperature Intolerance [facility] Family History Family History Mother Cancer Social History Social History Alcohol intake: current Alcohol intake frequency: does not drink Patient Tobacco Use Status: Never used Tobacco Substance Use Type: Marijuana Advance Directives: No Advance Directives Information Provided: No Physical Exam ED Vital Signs: Vital Signs - 24 hr 10/15/22 21:45 10/16/22 00:59 10/16/22 04:32 Temperature 97 F 99.0 F 98.0 F Pulse Rate 79 66 76 Respiratory Rate 17 16 18 Blood Pressure 100/61 101/51 L 122/61 Pulse Oximetry 98 99 100 Oxygen Delivery Method Room Air Room Air Room Air BMI result Body Mass Index 24.2 Const Other: Appearance: Alert. Oriented X3. No acute distress. Well-appearing Eyes: Pupils equal, round and reactive to light. ENT: Pharynx normal. Neck: Normal inspection. Neck supple. No lymph nodes noted. No crepitus CVS: Normal heart rate and rhythm. Pulses normal. Normal S1 and S2 Respiratory: No respiratory distress. Breath sounds normal. No Wheezing. No rales Abdomen: A discomfort to palpation in periumbilical area. No rigidity. No distention. Skin: Skin warm and dry. Normal skin color. Normal skin turgor. Extremities: No lower extremity edema. No Lacerations. No Rash Neuro: Oriented X 3. No motor deficit. No sensory deficit. Moving all extremities. No slurred speech. CN 2 through 12 grossly intact Psych: calm, cooperative, normal affect Course Course Course Narrative: -patient getting IV Toradol, Zofran Medical Decision Making Medical Decision Making [facility] Narrative: -my interpretation of patient's labs: Unremarkable -CT scan of the abdomen my interpretation: No a small bowel obstruction, no obvious abnormality -patient received 1 dose of ketorolac, patient feeling better. Differential Diagnosis Differential Diagnoses: The differential diagnosis associated with the presentation includes (Gastroenteritis, functional abdominal pain, UTI) Admission/Observation Consideration of admission/observation: Escalation of care including admission/observation considered (Patient came in complaining of abdominal pain, admission was considered) Lab Data [facility] Lab Attestation statement: I reviewed the patient's lab results. 10/15/22 22:02 10/15/22 22:02 Labs: Lab Results 10/15/22 10/15/22 10/16/22 Range/Units 22:02 22:02 01:01 WBC 10.0 (4.8-10.8) X10*3/uL RBC 4.38 (4.20-5.50) X10*6/uL Hgb 13.2 (12.0-16.0) g/dl Hct 39.4 (37.0-47.0) % MCV 90.0 (80.0-98.0) fL MCH 30.1 (27.0-33.0) pg MCHC 33.5 (31.0-35.0) g/dl RDW 12.4 (11.0-16.0) % Plt Count 404 H (160-400) X10*3/uL MPV 8.9 L (9.4-12.3) fL Immature Gran % (Auto) 0.4 (0.0-0.4) % Neut % (Auto) 80.6 H (45-73) % Lymph % (Auto) 12.7 L (20-40) % Lucas % (Auto) 4.9 (2-11) % Eos % (Auto) 1.0 (0-4) % Baso % (Auto) 0.4 (0-2) % Lymph # (Auto) 1.3 (1.2-4.9) X10*3/uL Lucas # (Auto) 0.5 (0.1-1.2) X10*3/uL Eos # (Auto) 0.1 (0.0-0.4) X10*3/uL Baso # (Auto) 0.0 (0.0-0.2) X10*3/uL Abs Immat Gran (auto) 0.04 H (0.00-0.03) X10*3/uL Absolute Neuts (auto) 8.0 (2.0-8.3) x10*3/uL Absolute Nucleated RBC 0.000 (0.0-0.012) X10*3/uL Nucleated RBC % (auto) 0.0 (0.0-0.2) /100WBC Sodium 138 (135-145) mmol/L Potassium 4.2 (3.3-5.1) mmol/L Chloride 106 (96-108) mmol/L Carbon Dioxide 23 (22-29) mmol/L Anion Gap 13 (12-20) BUN 9 (9-16) mg/dL Creatinine 0.76 (0.5-1.4) mg/dL Estim Creat Clear Calc 88.1 Estimated GFR > 60 Random Glucose 113 (60-115) mg/dL Calcium 9.3 (8.4-10.2) mg/dL Total Bilirubin 0.3 (0.0-1.0) mg/dL AST 25 (5-31) U/L ALT 16 (0-31) U/L Alkaline Phosphatase 47 (39-117) U/L Total Protein 7.4 (6.5-8.0) g/dL Albumin 3.9 (3.5-5.0) g/dL Lipase 13 (8-78) U/L Beta HCG, Quant < 2 mIU/mL Urine Color Urine Appearance Urine pH (5.0-9.0) Ur Specific [place] (1.005-1.025) Urine Protein (Neg-Trace) mg/dL Urine Glucose (UA) (Negative) mg/dL Urine Ketones (Negative) mg/dL Urine Blood (Negative) Urine Nitrite (Negative) Ur Leukocyte Esterase (Negative) Urine RBC (0-2) /HPF Urine WBC (0-5) /HPF Ur Squamous Epith Cells (0-2) /HPF Urine Bacteria (None Seen) Hyaline Casts (0-2) /LPF COVID-19 ([place]) Negative (Negative) COVID-19 Clin Com See Note 10/16/22 Range/Units 02:42 WBC (4.8-10.8) X10*3/uL RBC (4.20-5.50) X10*6/uL Hgb (12.0-16.0) g/dl Hct (37.0-47.0) % MCV (80.0-98.0) fL MCH (27.0-33.0) pg MCHC (31.0-35.0) g/dl RDW (11.0-16.0) % Plt Count (160-400) X10*3/uL MPV (9.4-12.3) fL Immature Gran % (Auto) (0.0-0.4) % Neut % (Auto) (45-73) % Lymph % (Auto) (20-40) % Lucas % (Auto) (2-11) % Eos % (Auto) (0-4) % Baso % (Auto) (0-2) % Lymph # (Auto) (1.2-4.9) X10*3/uL Lucas # (Auto) (0.1-1.2) X10*3/uL Eos # (Auto) (0.0-0.4) X10*3/uL Baso # (Auto) (0.0-0.2) X10*3/uL Abs Immat Gran (auto) (0.00-0.03) X10*3/uL Absolute Neuts (auto) (2.0-8.3) x10*3/uL Absolute Nucleated RBC (0.0-0.012) X10*3/uL Nucleated RBC % (auto) (0.0-0.2) /100WBC Sodium (135-145) mmol/L Potassium (3.3-5.1) mmol/L Chloride (96-108) mmol/L Carbon Dioxide (22-29) mmol/L Anion Gap (12-20) BUN (9-16) mg/dL Creatinine (0.5-1.4) mg/dL Estim Creat Clear Calc Estimated GFR Random Glucose (60-115) mg/dL Calcium (8.4-10.2) mg/dL Total Bilirubin (0.0-1.0) mg/dL AST (5-31) U/L ALT (0-31) U/L Alkaline Phosphatase (39-117) U/L Total Protein (6.5-8.0) g/dL Albumin (3.5-5.0) g/dL Lipase (8-78) U/L Beta HCG, Quant mIU/mL Urine Color Yellow Urine Appearance Clear Urine pH 6.0 (5.0-9.0) Ur Specific [place] 1.015 (1.005-1.025) Urine Protein Negative (Neg-Trace) mg/dL Urine Glucose (UA) Negative (Negative) mg/dL Urine Ketones 15 (Negative) mg/dL Urine Blood Moderate (2+) H (Negative) Urine Nitrite Negative (Negative) Ur Leukocyte Esterase Negative (Negative) Urine RBC 0-2 (0-2) /HPF Urine WBC 0-5 (0-5) /HPF Ur Squamous Epith Cells 3-5 (0-2) /HPF Urine Bacteria None Seen (None Seen) Hyaline Casts 0-2 (0-2) /LPF COVID-19 ([place]) (Negative) COVID-19 Clin Com Independent Interpretation I performed an independent interpretation of an: CT Scan Radiology Impression Discussion of test interpretation with radiology: I have reviewed the radiologist's reading. Radiologist Impression: FINDINGS: LUNG BASES: The visualized lung bases are unremarkable.? LIVER, GALLBLADDER, AND BILIARY TREE: The liver is normal in size, shape, and attenuation. No focal hepatic lesion or biliary ductal dilatation is present. The gallbladder is unremarkable with no evidence of radiopaque gallstones, gallbladder wall thickening, or obvious pericholecystic inflammatory changes.? PANCREAS: Unremarkable.? SPLEEN: Unremarkable.? ADRENAL GLANDS: Unremarkable.? KIDNEYS AND URETERS: The kidneys are normal in size, shape, and attenuation. No hydronephrosis, hydroureter, or calculi seen. No perinephric stranding. ? BLADDER: Unremarkable.? GASTROINTESTINAL TRACT: The small and large bowel are unremarkable. The appendix is unremarkable.? ABDOMINAL WALL: No significant hernia is appreciated.? LYMPH NODES: Normal. VASCULAR: Unremarkable. PELVIC VISCERA: Unremarkable. There is a small amount of free fluid within the pelvis. OSSEOUS STRUCTURES: Unremarkable.? CT/CT abdomen pelvis w IV con IMPRESSION: No significant abnormality.? ? Fleischner guidelines were followed. Medications Administered Discontinued Medications Generic Name Dose Route Start Last Admin Trade Name Freq PRN Reason Stop Dose Admin Iohexol 85 ml 10/16/22 04:51 10/16/22 04:51 Iohexol 350 Mg/Ml 100 Ml Infus..Btl IV 10/16/22 04:52 85 ml ONCE ONE Administration Ketorolac Tromethamine 30 mg 10/16/22 04:22 10/16/22 04:56 Ketorolac Tromethamine 30 Mg/Ml Vial IVPUSH 10/16/22 04:23 30 mg ONCE ONE Administration Ondansetron HCl 4 mg 10/16/22 04:24 10/16/22 04:56 Ondansetron Hcl 4 Mg/2 Ml Vial IVPUSH 10/16/22 04:25 4 mg ONCE ONE Administration - Discharge Plan Discharge Clinical Impression: Abdominal pain Patient Disposition: Home, Self-Care Instructions: Abdominal Pain (ED) Additional Instructions: Please follow-up with your primary care physician tomorrow. If you have any worsening or new symptoms, please return to the emergency room or call 911 Prescriptions: No Action ibuprofen 800 mg tablet 800 mg PO Q8H Qty: 60 1RF acetaminophen 650 mg tablet extended release 650 mg PO Q8H Qty: 60 1RF oxycodone 5 mg capsule 5 mg PO Q6H PRN (Reason: pain) Qty: 10 0RF Rx Instructions: Take in addition to ibuprofen and tylenol as needed for breakthrough pain ondansetron HCl 4 mg tablet 4 mg PO Q8H Qty: 14 0RF diphenhydramine HCl [Benadryl] 25 mg capsule 25 mg PO Q8H PRN (Reason: nausea and vomiting) Qty: 14 0RF ketorolac 10 mg tablet 10 mg PO Q8H Qty: 14 0RF Rx Instructions: First dose given in the ER by IV and patient tolerated well ibuprofen 400 mg tablet 400 mg PO Q6H PRN (Reason: pain) Qty: 28 0RF cyclobenzaprine 10 mg tablet 10 mg PO TID PRN (Reason: pain) Qty: 18 0RF Rx Instructions: side effect is drowsiness. Do not take at work or while driving. ondansetron 4 mg tablet,disintegrating 4 mg PO Q6H Qty: 14 0RF cefuroxime axetil 250 mg tablet 250 mg PO BID 7 Days Qty: 14 0RF
[2022-10-16 04:32] VITALS: BP 122/61; PULSE 76; RESP 18; TEMP 36.7; O2SAT 100
[2022-10-16] MEDS: iohexoL 350 MG/ML 100 ML INFUS..BTL 85 ML IV (04:51)
[2022-10-16] MEDS: Ketorolac Tromethamine 30 MG/ML VIAL IVPUSH (04:56)
[2022-10-16] MEDS: ondansetron HCL 4 MG/2 ML VIAL IVPUSH (04:56)
== END 2022-10-16 06:51 | disposition home or self-care (01) ==
PROVIDERS: Physician Assistant Medical; Emergency Provider Emergency Medicine
DX: R10.9 Unspecified abdominal pain (principal); Z20.822 Contact with and (suspected) exposure to COVID-19; Z20.828 Contact with and (suspected) exposure to other viral communicable diseases; Z79.899 Other long term (current) drug therapy
CPT/HCPCS: 36415; 74177; 80053; 81001; 83690; 84702; 85025; 87635; 96374; 96375; 99284; J1885; J2405; Q9967

== ENCOUNTER 2023-02-10 20:18 | Emergency (ER) | payer SELFPAY ==
[2023-02-10 20:47] VITALS: BP 111/67; PULSE 85; RESP 18; TEMP 37.4; O2SAT 96; BMI 23.3
--- NOTE | 2023-02-10 20:47 | ED_ITS ---
HPI - General Adult General Chief complaint: Upper Respiratory Symptoms Stated complaint: flu like symptoms Time Seen by Provider: 02/10/23 22:24 Source: patient Mode of arrival: ambulatory Limitations: no limitations History of Present Illness HPI narrative: Patient comes to the emergency room complaining of 2 days of headaches, cough, congestion and diffuse body aches. Related Data Previous Rx's Medication Instructions Recorded acetaminophen 650 mg 650 mg PO Q8H #60 tabs 09/02/20 tablet,extended release ibuprofen 800 mg tablet 800 mg PO Q8H #60 tabs 09/02/20 oxycodone 5 mg capsule 5 mg PO Q6H PRN pain #10 caps 09/02/20 cyclobenzaprine 10 mg tablet 10 mg PO TID PRN pain #18 tabs 02/02/21 ibuprofen 400 mg tablet 400 mg PO Q6H PRN pain #28 tabs 02/02/21 diphenhydramine HCl 25 mg capsule 25 mg PO Q8H PRN nausea and 04/26/22 (Benadryl) vomiting #14 caps ketorolac 10 mg tablet 10 mg PO Q8H #14 tabs 04/26/22 ondansetron HCl 4 mg tablet 4 mg PO Q8H #14 tabs 04/26/22 ondansetron 4 mg disintegrating 4 mg PO Q6H #14 tabs 05/10/22 tablet cefuroxime axetil 250 mg tablet 250 mg PO BID 7 days #14 tabs 05/15/22 nirmatrelvir 300 mg (150 mg See Rx Instructions PO .COMPLEX 02/10/23 x2)-ritonavir 100 mg tablet,dose #30 ea pack (Paxlovid) Allergies Allergy/AdvReac Type Severity Reaction Status Date / Time No Known Allergies Allergy Verified 10/15/22 21:44 Review of Systems Review of Systems: Constitutional : No Weight loss, complaining of subjective fever, chills, body aches, generalized malaise ENT/Mouth : No Hearing loss, No Ear Pain, No Nasal Congestion, No Sinus Pain, No Hoarseness, No sore throat, No Rhinorrhea, No Swallowing Difficulty Eyes: No Eye Pain, No Swelling, No Redness, No Foreign Body, No Discharge, No Vision Changes Cardiovascular : No Chest Pain, No SOB, No Dyspnea on Exertion, No Orthopnea, No Edema, No Palpitations Respiratory : Complaining of Cough, No Sputum, No Wheezing, No Smoke Exposure, No Dyspnea Gastrointestinal : No Nausea, No Vomiting, No Diarrhea, No Constipation, No abdominal Pain, No Hematochezia, No Melena Genitourinary : no irregular bleeding, No Dysuria, No Urinary Frequency, No Hematuria, No Urinary Incontinence, No Urgency, No Flank Pain, No Urinary Flow Changes, No Hesitancy Musculoskeletal : Complaining of diffuse body aches Skin : No Skin Lesions, No rash Neuro : No Weakness, No Numbness, No Paresthesias, No Loss of Consciousness, No Dizziness, No Headache Psych : No Anxiety/Panic, No Depression, No SI/HI/AH/VH, No Social Issues, Heme/Lymph: No Bruising, No Bleeding,No Lymphadenopathy Endocrine : No Polyuria, No Polydipsia, No Temperature Intolerance [facility] Family History Family History Mother Cancer Social History Social History Alcohol intake: current Alcohol intake frequency: does not drink Patient Tobacco Use Status: Never used Tobacco Substance Use Type: Marijuana Physical Exam ED Vital Signs: Vital Signs - 24 hr 02/10/23 20:47 Temperature 99.4 F Pulse Rate 85 Respiratory Rate 18 Blood Pressure 111/67 Pulse Oximetry 96 Oxygen Delivery Method Room Air BMI result Body Mass Index 23.3 Const Other: Appearance: Alert. Oriented X3. No acute distress. Eyes: Pupils equal, round and reactive to light. ENT: Pharynx normal. Neck: Normal inspection. Neck supple. No lymph nodes noted. No crepitus CVS: Normal heart rate and rhythm. Pulses normal. Normal S1 and S2 Respiratory: No respiratory distress. Breath sounds normal. No Wheezing. No rales Abdomen: Soft and nontender. No rigidity. No distention. Skin: Skin warm and dry. Normal skin color. Normal skin turgor. Extremities: No lower extremity edema. No Lacerations. No Rash Neuro: Oriented X 3. No motor deficit. No sensory deficit. Moving all extremities. No slurred speech. CN 2 through 12 grossly intact Psych: calm, cooperative, tearful Course Course Course Narrative: RME- 22 year old female presents for evaluation of flu-like symptoms that started 2 days ago. Plan for viral swab Medical Decision Making Medical Decision Making [facility] Narrative: Discussed with the patient that she tested positive for COVID. -this is the 2nd day that patient is symptomatic, patient decided to go ahead and try Paxlovid Differential Diagnosis Differential Diagnoses: The differential diagnosis associated with the presentation includes (COVID, influenza, viral URI) Lab Data [facility] Lab Attestation statement: I reviewed the patient's lab results. Labs: Lab Results 02/10/23 Range/Units 20:53 Influenza Type A (PCR) NEGATIVE (Negative) Influenza Type B (PCR) NEGATIVE (Negative) RSV RNA Qual (PCR) NEGATIVE (Negative) SARS-CoV-2 RNA (RT-PCR) POSITIVE A (Negative) Discharge Plan Discharge Clinical Impression: COVID Patient Disposition: Home, Self-Care Instructions: COVID-19 (Coronavirus Disease 2019) (ED) Additional Instructions: Please follow-up with your primary care physician tomorrow. If you have any worsening or new symptoms, please return to the emergency room or call 911 Prescriptions: New Paxlovid 300 mg (150 mg x 2)-100 mg tablets,dose pack See Rx Instructions .ROUTE .COMPLEX Qty: 30 0RF Rx Instructions: take TWO 150 mg tablets of nirmatrelvir with ONE 100 mg tablet of ritonavir twice daily for 5 days No Action ibuprofen 800 mg tablet 800 mg PO Q8H Qty: 60 1RF acetaminophen 650 mg tablet extended release 650 mg PO Q8H Qty: 60 1RF oxycodone 5 mg capsule 5 mg PO Q6H PRN (Reason: pain) Qty: 10 0RF Rx Instructions: Take in addition to ibuprofen and tylenol as needed for breakthrough pain ondansetron HCl 4 mg tablet 4 mg PO Q8H Qty: 14 0RF diphenhydramine HCl [Benadryl] 25 mg capsule 25 mg PO Q8H PRN (Reason: nausea and vomiting) Qty: 14 0RF ketorolac 10 mg tablet 10 mg PO Q8H Qty: 14 0RF Rx Instructions: First dose given in the ER by IV and patient tolerated well ibuprofen 400 mg tablet 400 mg PO Q6H PRN (Reason: pain) Qty: 28 0RF cyclobenzaprine 10 mg tablet 10 mg PO TID PRN (Reason: pain) Qty: 18 0RF Rx Instructions: side effect is drowsiness. Do not take at work or while driving. ondansetron 4 mg tablet,disintegrating 4 mg PO Q6H Qty: 14 0RF cefuroxime axetil 250 mg tablet 250 mg PO BID 7 Days Qty: 14 0RF Stand Alone Forms: Work/School Release
[2023-02-10 21:34] LABS: Influenza A PCR NEGATIVE (Negative); Influenza B PCR NEGATIVE (Negative); Resp Syncy Virus RNA Qual PCR NEGATIVE (Negative); SARS COV2 PCR INHOUSE POSITIVE (Negative)
== END 2023-02-10 22:58 | disposition home or self-care (01) ==
PROVIDERS: Physician Assistant; Emergency Provider Emergency Medicine
DX: U07.1 COVID-19 (principal); R51.9 Headache, unspecified; R05.9 Cough, unspecified; M79.10 Myalgia, unspecified site
CPT/HCPCS: 0241U; 99282; 99283

== ENCOUNTER 2023-04-02 22:56 | Emergency (ER) | payer MEDICAID, SELFPAY ==
--- NOTE | 2023-04-02 | ECG_ITS ---
Test Reason : TACHYCARDIA Blood Pressure : / mmHG Vent. Rate : 126 BPM Atrial Rate : 126 BPM P-R Int : 158 ms QRS Dur : 078 ms QT Int : 296 ms P-R-T Axes : 069 082 -05 degrees QTc Int : 428 ms Sinus tachycardia T wave abnormality, consider inferior ischemia Abnormal ECG When compared with ECG of 02-APR-2023 23:16, No significant change was found Referred By: Nimesh Parikh Electronically Signed By:KY MACHUCA MD
[2023-04-02 23:08] VITALS: PULSE 127; RESP 24; TEMP 37.3; O2SAT 99; BMI 21.9
[2023-04-02 23:34] LABS: Basophils Percent Auto 0.2 % (0-2); Eosinophils Absolute Auto 0.1 X10*3/uL (0.0-0.4); Eosinophils Percent Auto 0.9 % (0-4); Hematocrit 36.1 % (37.0-47.0); Hemoglobin 12.3 g/dl (12.0-16.0); Imm Gran Abs Auto 0.03 X10*3/uL (0.00-0.03); Imm Gran Pct Auto 0.2 % (0.0-0.4); Lymphocytes Absolute Auto 0.4 X10*3/uL (1.2-4.9); Lymphocytes Percent Auto 3.2 % (20-40); MANUAL DIFF FLAG SCAN; Mean Corpuscular HGB Conc 34.1 g/dl (31.0-35.0); Mean Corpuscular Hemoglobin 29.7 pg (27.0-33.0); Mean Corpuscular Volume 87.2 fL (80.0-98.0); Mean Platelet Volume 8.6 fL (9.4-12.3); Monocytes Absolute Auto 0.6 X10*3/uL (0.1-1.2); Monocytes Percent Auto 4.9 % (2-11); Neutrophils Absolute Auto 11.6 x10*3/uL (2.0-8.3); Neutrophils Percent Auto 90.6 % (45-73); Platelet Count 400 X10*3/uL (160-400); Red Blood Count 4.14 X10*6/uL (4.20-5.50); SCAN SMEAR FLAG 1; White Blood Count 12.8 X10*3/uL (4.8-10.8)
[2023-04-02 23:47] LABS: Anion Gap 15 (12-20); Blood Urea Nitrogen 13 mg/dL (9-16); Calcium 9.5 mg/dL (8.4-10.2); Carbon Dioxide 22 mmol/L (22-29); Chloride 106 mmol/L (96-108); Creatinine Clr Calc Pharmacy 89.4; Estimated Glomerular Filt Rate > 60; Glucose Random 100 mg/dL (60-115); Potassium 3.6 mmol/L (3.3-5.1); Sodium 139 mmol/L (135-145)
[2023-04-02 23:52] LABS: SLIDE REVIEW VERIFIED
--- NOTE | 2023-04-03 02:28 | ED_ITS ---
HPI - General Adult General Chief complaint: General Medical Stated complaint: breathing/back pin Time Seen by Provider: 04/03/23 02:27 Source: patient and other (Boyfriend) Mode of arrival: ambulatory Limitations: other (Panic attack) History of Present Illness HPI narrative: 22-year-old female with a history of anxiety who presents emergency department for evaluation of back pain, difficulty breathing, numbness in her face and lips, carpal pedal spasm. The symptoms started earlier in the day and is got progressively worse. Patient states she is having difficulty breathing and feels like she is going to pass out. She states she is having chest pain, back pain and cramping in her hands and feet. Related Data Previous Rx's Medication Instructions Recorded acetaminophen 650 mg 650 mg PO Q8H #60 tabs 09/02/20 tablet,extended release ibuprofen 800 mg tablet 800 mg PO Q8H #60 tabs 09/02/20 oxycodone 5 mg capsule 5 mg PO Q6H PRN pain #10 caps 09/02/20 cyclobenzaprine 10 mg tablet 10 mg PO TID PRN pain #18 tabs 02/02/21 ibuprofen 400 mg tablet 400 mg PO Q6H PRN pain #28 tabs 02/02/21 diphenhydramine HCl 25 mg capsule 25 mg PO Q8H PRN nausea and 04/26/22 (Benadryl) vomiting #14 caps ketorolac 10 mg tablet 10 mg PO Q8H #14 tabs 04/26/22 ondansetron HCl 4 mg tablet 4 mg PO Q8H #14 tabs 04/26/22 ondansetron 4 mg disintegrating 4 mg PO Q6H #14 tabs 05/10/22 tablet cefuroxime axetil 250 mg tablet 250 mg PO BID 7 days #14 tabs 05/15/22 nirmatrelvir 300 mg (150 mg See Rx Instructions PO .COMPLEX 02/10/23 x2)-ritonavir 100 mg tablet,dose #30 ea pack (Paxlovid) lorazepam 1 mg tablet 1 mg PO TID PRN anxiety #10 tabs 04/03/23 Allergies Allergy/AdvReac Type Severity Reaction Status Date / Time No Known Allergies Allergy Verified 10/15/22 21:44 Review of Systems 2 Review of Systems: Yes all other systems are reviewed and are negative [facility] Past Medical History [facility] Narrative: Past medical history: Anxiety. Social history: She denies tobacco use. She occasionally takes alcohol. She smokes marijuana. Family History Family History Mother Cancer Social History Social History Alcohol intake: current Alcohol intake frequency: does not drink Patient Tobacco Use Status: Never used Tobacco Substance Use Type: Marijuana Advance Directives: No Advance Directives Information Provided: No Patient : No Physical Exam ED Vital Signs: Vital Signs - 24 hr 04/02/23 23:08 04/03/23 05:10 Temperature 99.2 F Pulse Rate 127 H 132 H Respiratory Rate 24 H 24 H Pulse Oximetry 99 97 Oxygen Delivery Method Room Air Room Air BMI result Body Mass Index 21.9 Vital signs revealed elevated heart rate of 124 and elevated respiratory rate of 24, O2 saturation was normal at 99% on room air Exam: General: Awake, anxious, hyperventilating Head: Normocephalic, atraumatic EENT: PERRL, Lids normal, sclera normal, conjunctiva normal, nose normal , ears normal, throat without erythema or exudates Neck: Supple, no adenopathy Lung: breath sounds symmetric, no wheezing, rales or rhonchi Chest: symmetric movement, nontender Heart: regular rate and rhythm, normal S1, S2 no murmurs or rubs Abdomen: soft, non-tender, nondistended, normal bowel sounds Back: no vertebral tenderness, no CVAT Extremities: Patient has carpal pedal spasm Neuro: Awake, alert, oriented, cranial nerves intact, speech normal Psych: Anxiety with panic attack Medications Administered Discontinued Medications Generic Name Dose Route Start Last Admin Trade Name Freq PRN Reason Stop Dose Admin Sodium Chloride 1,000 mls @ 999 mls/hr 04/03/23 05:07 04/03/23 05:29 Ns IV 04/03/23 06:07 999 mls/hr .Q1H1M STA Administration Lorazepam 2 mg 04/03/23 02:22 04/03/23 02:30 Lorazepam 1 Mg Tablet PO 04/03/23 02:23 2 mg ONCE STA Administration Medical Decision Making Medical Decision Making [facility] Narrative: 20-year-old female with a history of anxiety who presents emergency department for evaluation of chest pain, back pain, shortness of breath, carpal pedal spasm. Patient's vital signs revealed an elevated heart rate and elevated respiratory rate. Patient's presentation is consistent with hyperventilation syndrome panic attack Differential diagnosis: Anxiety, hyperventilation syndrome, panic attack, anemia, electrolyte abnormalities Following evaluation was ordered: CBC, BMP, 12 EKG Patient was treated with the following: Ativan 2 mg 02:38 My interpretation patient's laboratory evaluation as follows: CBC was normal. CMP was normal. 06:17 The patient's 12 EKG was consistent with sinus tachycardia. Quantitative beta- hCG was below detectable limits. Patient was given normal saline x1 L and she is feeling better but she still remains tachycardic. Patient's symptoms are consistent with anxiety/hyperventilation syndrome. Patient was given prescription for Ativan 1 mg pills 3 times a day as needed for anxiety Patient was discharged home Lab Data MDM Lab Attestation statement: I reviewed the patient's lab results. 04/02/23 23:27 04/02/23 23:27 Labs: Lab Results 04/02/23 Range/Units 23:27 WBC 12.8 H (4.8-10.8) X10*3/uL RBC 4.14 L (4.20-5.50) X10*6/uL Hgb 12.3 (12.0-16.0) g/dl Hct 36.1 L (37.0-47.0) % MCV 87.2 (80.0-98.0) fL MCH 29.7 (27.0-33.0) pg MCHC 34.1 (31.0-35.0) g/dl RDW 13.0 (11.0-16.0) % Plt Count 400 (160-400) X10*3/uL MPV 8.6 L (9.4-12.3) fL Immature Gran % (Auto) 0.2 (0.0-0.4) % Neut % (Auto) 90.6 H (45-73) % Lymph % (Auto) 3.2 L (20-40) % [place] % (Auto) 4.9 (2-11) % Eos % (Auto) 0.9 (0-4) % Baso % (Auto) 0.2 (0-2) % Lymph # (Auto) 0.4 L (1.2-4.9) X10*3/uL [place] # (Auto) 0.6 (0.1-1.2) X10*3/uL Eos # (Auto) 0.1 (0.0-0.4) X10*3/uL Baso # (Auto) 0.0 (0.0-0.2) X10*3/uL Abs Immat Gran (auto) 0.03 (0.00-0.03) X10*3/uL Absolute Neuts (auto) 11.6 H (2.0-8.3) x10*3/uL Absolute Nucleated RBC 0.000 (0.0-0.012) X10*3/uL Nucleated RBC % (auto) 0.0 (0.0-0.2) /100WBC Smear Tech's Comments VERIFIED Sodium 139 (135-145) mmol/L Potassium 3.6 (3.3-5.1) mmol/L Chloride 106 (96-108) mmol/L Carbon Dioxide 22 (22-29) mmol/L Anion Gap 15 (12-20) BUN 13 (9-16) mg/dL Creatinine 0.78 (0.5-1.4) mg/dL Estim Creat Clear Calc 89.4 Estimated GFR > 60 Random Glucose 100 (60-115) mg/dL Calcium 9.5 (8.4-10.2) mg/dL Beta HCG, Quant < 2 mIU/mL Independent Interpretation I performed an independent interpretation of an: EKG Interpretation: My interpretation patient's 12 EKG done at 05:25 hours is as follows: Sinus tachycardia with a rate of 126, normal VT interval, QRS duration QTC interval, no ST segment elevation, no ST segment depression, no PACs, no PVCs-except for the tachycardia this is a normal EKG Discharge Plan Discharge Clinical Impression: Acute hyperventilation syndrome, Panic attack Patient Disposition: Home, Self-Care Instructions: Hyperventilation (ED) Additional Instructions: Your blood work was unremarkable. Your EKG was consistent with a normal fast heart rate most likely caused by anxiety. Take Ativan 1 mg pills, 1 pill every 6 hours as needed for anxiety. ?This medication will make you sleepy, do not drive or work while taking this medication. ?This medication can be addicting, if your concerned about addiction you can ask the pharmacist for less medications or do not get the prescription filled. Follow-up with your doctor in 2 days. Please return to the emergency department if your symptoms get worse or if you develop any symptoms that are concerning to you. Prescriptions: New lorazepam 1 mg tablet 1 mg PO TID PRN (Reason: anxiety) Qty: 10 0RF Rx Instructions: Patient may ask for partial fill No Action ibuprofen 800 mg tablet 800 mg PO Q8H Qty: 60 1RF acetaminophen 650 mg tablet extended release 650 mg PO Q8H Qty: 60 1RF oxycodone 5 mg capsule 5 mg PO Q6H PRN (Reason: pain) Qty: 10 0RF Rx Instructions: Take in addition to ibuprofen and tylenol as needed for breakthrough pain ondansetron HCl 4 mg tablet 4 mg PO Q8H Qty: 14 0RF diphenhydramine HCl [Benadryl] 25 mg capsule 25 mg PO Q8H PRN (Reason: nausea and vomiting) Qty: 14 0RF ketorolac 10 mg tablet 10 mg PO Q8H Qty: 14 0RF Rx Instructions: First dose given in the ER by IV and patient tolerated well ibuprofen 400 mg tablet 400 mg PO Q6H PRN (Reason: pain) Qty: 28 0RF cyclobenzaprine 10 mg tablet 10 mg PO TID PRN (Reason: pain) Qty: 18 0RF Rx Instructions: side effect is drowsiness. Do not take at work or while driving. ondansetron 4 mg tablet,disintegrating 4 mg PO Q6H Qty: 14 0RF cefuroxime axetil 250 mg tablet 250 mg PO BID 7 Days Qty: 14 0RF Paxlovid 300 mg (150 mg x 2)-100 mg tablets,dose pack See Rx Instructions .ROUTE .COMPLEX Qty: 30 0RF Rx Instructions: take TWO 150 mg tablets of nirmatrelvir with ONE 100 mg tablet of ritonavir twice daily for 5 days
[2023-04-03] MEDS: LORazepam 1 MG TABLET 2 MG PO (02:30)
--- NOTE | 2023-04-03 03:15 | PC.NURSE ---
This RN coviring for primary RN during break. Pt sig other rang pike. Upon entering room, this RN noted very strong odor of marijuana. Pt sig other stated that the medication she got is working a little bit but not very much and I just wanted to let the doctor know . Pt appearing drowsy, eyes droopy, no noted acute distress, respirations even and unlabored. MD made aware.
--- NOTE | 2023-04-03 05:07 | ECG_ITS ---
Test Reason : SOB Blood Pressure : / mmHG Vent. Rate : 106 BPM Atrial Rate : 106 BPM P-R Int : 158 ms QRS Dur : 078 ms QT Int : 324 ms P-R-T Axes : 072 078 025 degrees QTc Int : 430 ms Sinus tachycardia Possible Left atrial enlargement Borderline ECG When compared with ECG of 26-APR-2022 10:53, Nonspecific T wave abnormality has replaced inverted T waves in Inferior leads Referred By: Nimesh Parikh Electronically Signed By:KY MACHUCA MD
[2023-04-03 05:10] VITALS: PULSE 132; RESP 24; O2SAT 97
[2023-04-03 05:28] LABS: HCG Quantitative < 2 mIU/mL
[2023-04-03] MEDS: 0.9 % Sodium Chloride 1,000 ML 999 ML IV (05:29)
== END 2023-04-03 06:36 | disposition home or self-care (01) ==
PROVIDERS: Emergency Provider Emergency Medicine Emergency Medical Services
DX: F45.8 Other somatoform disorders (principal); F41.0 Panic disorder [episodic paroxysmal anxiety]; M54.9 Dorsalgia, unspecified; R07.9 Chest pain, unspecified; R00.0 Tachycardia, unspecified
CPT/HCPCS: 36415; 80048; 84702; 85025; 93005; 99283; 99285

== ENCOUNTER → 2023-04-02 | Outpatient (BNV) | payer MEDICAID, SELFPAY | PROVIDERS: Emergency Provider Emergency Medicine Emergency Medical Services; Visit Provider Internal Medicine Cardiovascular Disease | DX: R00.0 Tachycardia, unspecified (principal); R94.31 Abnormal electrocardiogram [ECG] [EKG] | CPT/HCPCS: 93010 ==

== ENCOUNTER → 2023-04-03 05:07 | Outpatient (BNV) | payer MEDICAID, SELFPAY | PROVIDERS: Emergency Provider Emergency Medicine Emergency Medical Services; Visit Provider Internal Medicine Cardiovascular Disease | DX: R06.02 Shortness of breath (principal) | CPT/HCPCS: 93010 ==

== ENCOUNTER → 2024-03-13 05:50 | Outpatient (BNV) | payer MEDICAID, SELFPAY | PROVIDERS: Visit Provider Radiology Diagnostic Radiology | DX: R07.1 Chest pain on breathing (principal) | CPT/HCPCS: 71046 ==

== ENCOUNTER → 2024-03-13 06:59 | Outpatient (BNV) | payer MEDICAID, SELFPAY | PROVIDERS: Emergency Provider Student in an Organized Health Care Education/Training Program; Visit Provider Internal Medicine | DX: R07.9 Chest pain, unspecified (principal); R00.1 Bradycardia, unspecified; R94.31 Abnormal electrocardiogram [ECG] [EKG] | CPT/HCPCS: 93010 ==

== ENCOUNTER 2024-03-20 19:21 | Emergency (ER) | payer MEDICAID, SELFPAY ==
[2024-03-20 19:26] VITALS: BP 141/82; PULSE 84; RESP 18; TEMP 36.8; O2SAT 99; BMI 43.7
--- NOTE | 2024-03-20 19:46 | ED_ITS ---
HPI - General Adult General Chief complaint: Abdominal Pain Stated complaint: nausea Time Seen by Provider: 03/20/24 23:45 Source: patient Mode of arrival: ambulatory Limitations: no limitations History of Present Illness ED Provider: Dr. Nimesh Parikh HPI narrative: 23-year-old female who presents moment for evaluation of nausea, vomiting, diarrhea, myalgias and arthralgias. Patient states that she got sick at around 18:00 hours. She states that she was vomited a proximally 4 times he was had diarrhea which was too numerous to count. There was no blood in the diarrhea with the vomiting. She also complains of lightheadedness, dizziness, chest pain and shortness of breath. Patient had a similar presentation on 03/13/2024. She did have an elevated serum quantitative beta-hCG 15. Patient is a with therapeutic . She was diagnosed with a viral gastroenteritis but did not follow-up with OBGYN for repeat test. Patient denies tobacco use but she does smoke marijuana 3 to 4 times a day. She was never been diagnosed with cyclic vomiting syndrome. Related Data Previous Rx's ?Medication ?Instructions ?Recorded acetaminophen 650 mg 650 mg PO Q8H #60 tabs 09/02/20 tablet,extended release ibuprofen 800 mg tablet 800 mg PO Q8H #60 tabs 09/02/20 oxycodone 5 mg capsule 5 mg PO Q6H PRN pain #10 caps 09/02/20 cyclobenzaprine 10 mg tablet 10 mg PO TID PRN pain #18 tabs 02/02/21 ibuprofen 400 mg tablet 400 mg PO Q6H PRN pain #28 tabs 02/02/21 diphenhydramine HCl 25 mg capsule 25 mg PO Q8H PRN nausea and 04/26/22 (Benadryl) vomiting #14 caps ketorolac 10 mg tablet 10 mg PO Q8H #14 tabs 04/26/22 ondansetron HCl 4 mg tablet 4 mg PO Q8H #14 tabs 04/26/22 ondansetron 4 mg disintegrating 4 mg PO Q6H #14 tabs 05/10/22 tablet cefuroxime axetil 250 mg tablet 250 mg PO BID 7 days #14 tabs 05/15/22 nirmatrelvir 300 mg (150 mg See Rx Instructions PO .COMPLEX 02/10/23 x2)-ritonavir 100 mg tablet,dose #30 ea pack (Paxlovid) lorazepam 1 mg tablet 1 mg PO TID PRN anxiety #10 tabs 04/03/23 ondansetron 4 mg disintegrating 4 mg PO DAILY PRN nausea and 03/13/24 tablet vomiting 5 days #14 tabs vitamin#30 30 mg iron-10 1 cap PO DAILY #60 caps 03/13/24 mg iron-folic acid 1 mg-omg3 capsule acetaminophen 500 mg tablet 1,000 mg (2 x 500 mg) PO Q6H PRN 03/21/24 (Tylenol Extra Strength) fever or pain #20 tabs ibuprofen 400 mg tablet 400 mg PO TID PRN fever or pain 03/21/24 #30 tabs ondansetron 4 mg disintegrating 4 mg PO Q6-8H PRN nausea and 03/21/24 tablet vomiting #14 tabs Allergies Allergy/AdvReac Type Severity Reaction Status Date / Time No Known Allergies Allergy Verified 03/20/24 19:30 Review of Systems 2 Review of Systems: Yes all other systems are reviewed and are negative [facility] Past Medical History [facility] Narrative: Social history: She denies tobacco use. She does drink alcohol occasionally. She does smoke marijuana 3 to 4 times a day. Family History Family History Mother Cancer Social History Social History Alcohol intake: current Alcohol intake frequency: holidays/special occasions only Patient Tobacco Use Status: Never used Tobacco Substance Use Type: Marijuana Advance Directives: No Advance Directives Information Provided: No Physical Exam ED Vital Signs: Vital Signs - 24 hr 03/20/24 19:26 03/20/24 23:27 Temperature 98.2 F 98.8 F Pulse Rate 84 89 Respiratory Rate 18 16 Blood Pressure 141/82 H 94/53 L Pulse Oximetry 99 98 Oxygen Delivery Method Room Air Room Air BMI result Body Mass Index 43.7 Vital signs were unremarkable. Exam: General: Awake, alert in no distress Head: Normocephalic, atraumatic EENT: PERRL, Lids normal, sclera normal, conjunctiva normal, nose normal , ears normal, throat without erythema or exudates Neck: Supple, no adenopathy Lung: breath sounds symmetric, no wheezing, rales or rhonchi Chest: symmetric movement, nontender Heart: regular rate and rhythm, normal S1, S2 no murmurs or rubs Abdomen: soft, non-tender, nondistended, normal bowel sounds Back: no vertebral tenderness, no CVAT Extremities: no deformities, moves all extremities symmetrically Neuro: Awake, alert, oriented, normal speech, cranial nerves intact, moves all extremities symmetrically Psych: Pleasant, cooperative Course Course Course Narrative: 23-year-old female presents for evaluation of nausea and vomiting. She reports she was here 1 week ago and was told that she is . Her hCG was 15 at that time. Plan for labs and repeat hCG. We will defer imaging at this time pending hCG Medications Administered Generic Name Dose Route Start Last Admin Trade Name Freq PRN Reason Stop Dose Admin Sodium Chloride 1,000 mls @ 999 mls/hr 03/21/24 00:16 03/21/24 00:44 Ns IV 03/21/24 01:16 999 mls/hr .Q1H1M STA Administration Discontinued Medications Generic Name Dose Route Start Last Admin Trade Name Freq PRN Reason Stop Dose Admin Ketorolac Tromethamine 15 mg 03/21/24 00:16 03/21/24 00:44 Ketorolac Tromethamine 15 Mg/Ml Vial IVPUSH 03/21/24 00:17 15 mg ONCE STA Administration Ondansetron HCl 4 mg 03/21/24 00:16 03/21/24 00:44 Ondansetron Hcl 4 Mg/2 Ml Vial IVPUSH 03/21/24 00:17 4 mg ONCE ONE Administration Medical Decision Making Medical Decision Making [facility] Narrative: 23-year-old female who presents moment for evaluation of nausea, vomiting, diarrhea, myalgias and arthralgias with symptoms starting at 18:00 hours. Patient had a similar presentation 03/13/2024. At that visit she did have a quantitative beta-hCG which was 15. Vital signs were unremarkable. Physical examination was unremarkable. Differential diagnosis: ?Includes but is not limited to acute viral illness, viral gastroenteritis, vomiting associated with , cyclic vomiting syndrome, cannabis hyperemesis syndrome, electrolyte abnormalities, anemia Course: 01:15 My independent interpretation patient's laboratory evaluation is as follows: CBC was normal. CMP was normal. Quantitative beta-hCG was below detectable limits-this suggests the patient is not at this time. Patient was treated with Toradol 15 mg IV, Zofran 4 mg IV and normal saline x1 L. she feels significantly better. She was discharged home with prescriptions for ibuprofen, Tylenol and Zofran ODT. She was given printed and verbal instructions and discharged home. I did discuss the possibility of cannabis hyperemesis syndrome with the patient however I think that given her diarrhea her symptoms today are more consistent with viral gastroenteritis. Admission/Observation Consideration of admission/observation: Escalation of care including admission/observation considered Lab Data [facility] Lab Attestation statement: I reviewed the patient's lab results. 03/20/24 20:09 03/20/24 20:09 Labs: Lab Results 03/20/24 Range/Units 20:09 WBC 11.8 H (4.8-10.8) X10*3/uL RBC 4.47 (4.20-5.50) X10*6/uL Hgb 13.6 (12.0-16.0) g/dl Hct 40.0 (37.0-47.0) % MCV 89.5 (80.0-98.0) fL MCH 30.4 (27.0-33.0) pg MCHC 34.0 (31.0-35.0) g/dl RDW 12.7 (11.0-16.0) % Plt Count 442 H D (160-400) X10*3/uL MPV 8.7 L (9.4-12.3) fL Immature Gran % (Auto) 0.3 (0.0-0.4) % Neut % (Auto) 80.0 H (45-73) % Lymph % (Auto) 9.9 L (20-40) % [place] % (Auto) 6.5 (2-11) % Eos % (Auto) 3.0 (0-4) % Baso % (Auto) 0.3 (0-2) % Lymph # (Auto) 1.2 (1.2-4.9) X10*3/uL [place] # (Auto) 0.8 (0.1-1.2) X10*3/uL Eos # (Auto) 0.4 (0.0-0.4) X10*3/uL Baso # (Auto) 0.0 (0.0-0.2) X10*3/uL Abs Immat Gran (auto) 0.04 H (0.00-0.03) X10*3/uL Absolute Neuts (auto) 9.5 H (2.0-8.3) x10*3/uL Absolute Nucleated RBC 0.000 (0.0-0.012) X10*3/uL Nucleated RBC % (auto) 0.0 (0.0-0.2) /100WBC Sodium 141 (135-145) mmol/L Potassium 4.0 (3.3-5.1) mmol/L Chloride 115 H (96-108) mmol/L Carbon Dioxide 23 (22-29) mmol/L Anion Gap 7 L (12-20) BUN 8 L (9-16) mg/dL Creatinine 0.63 (0.5-1.4) mg/dL Estim Creat Clear Calc 142.9 Estimated GFR > 60 Random Glucose 84 (60-115) mg/dL Calcium 9.1 (8.4-10.2) mg/dL Total Bilirubin 0.8 (0.0-1.0) mg/dL AST 23 (5-31) U/L ALT 11 (0-31) U/L Alkaline Phosphatase 45 (39-117) U/L Total Protein 7.5 (6.5-8.0) g/dL Albumin 4.3 (3.5-5.0) g/dL Lipase 22 (8-78) U/L Beta HCG, Quant < 2 mIU/mL Urine Color Yellow Urine Appearance Clear Urine pH 5.5 (5.0-9.0) Ur Specific [place] 1.025 (1.005-1.025) Urine Protein Negative (Neg-Trace) mg/dL Urine Glucose (UA) Negative (Negative) mg/dL Urine Ketones Trace (Negative) mg/dL Urine Blood Negative (Negative) Urine Nitrite Negative (Negative) Ur Leukocyte Esterase Negative (Negative) Urine RBC 0-2 (0-2) /HPF Urine WBC 0-5 (0-5) /HPF Ur Squamous Epith Cells 6-10 (0-2) /HPF Urine Bacteria Trace (None Seen) Hyaline Casts 0-2 (0-2) /LPF Prescription Management I considered prescription management with: Pain Medication and Other (Antiemetic: Zofran) Discharge Plan Discharge Clinical Impression: Viral syndrome Nausea & vomiting Qualifiers: Vomiting type: unspecified Qualified Code(s): R11.2 - Nausea with vomiting, unspecified Diarrhea Qualifiers: Diarrhea type: unspecified type Qualified Code(s): R19.7 - Diarrhea, unspecified Patient Disposition: Home, Self-Care Instructions: Viral Syndrome (ED) Additional Instructions: Your blood work was unremarkable. Your blood test (quantitative beta-hCG) was negative today which means you are not . Your symptoms of nausea, vomiting, diarrhea and body aches are consistent with a viral infection (gastroenteritis/stomach bug). Your body will fight off this virus but you may be sick for 3-7 days. Take ibuprofen 400 mg pills, 1 pills every 6 hours as needed for pain or fever. Take Tylenol (acetaminophen) 500 mg pills, 2 pills every 6 hours as needed for pain or fever. Take Zofran ODT 4 mg pills, 1 pill dissolved in your mouth every 8 hours as needed for nausea and vomiting. For the next 24 hours, stay on a JAN diet (bananas, rice, applesauce, tea and toast). Follow-up with your doctor in 2 days. Please return to the emergency department if your symptoms get worse or if you develop any symptoms that are concerning to you. If you keep getting recurrent episodes of nausea and vomiting you may have cannabis hyperemesis syndrome. This is caused by smoking marijuana daily. You should consider stopping using marijuana completely. Prescriptions: New acetaminophen [Tylenol Extra Strength] 500 mg tablet 1,000 mg PO Q6H PRN (Reason: fever or pain) Qty: 20 0RF ibuprofen 400 mg tablet 400 mg PO TID PRN (Reason: fever or pain) Qty: 30 0RF ondansetron 4 mg tablet,disintegrating 4 mg PO Q6-8H PRN (Reason: nausea and vomiting) Qty: 14 0RF No Action ibuprofen 800 mg tablet 800 mg PO Q8H Qty: 60 1RF acetaminophen 650 mg tablet extended release 650 mg PO Q8H Qty: 60 1RF oxycodone 5 mg capsule 5 mg PO Q6H PRN (Reason: pain) Qty: 10 0RF Rx Instructions: Take in addition to ibuprofen and tylenol as needed for breakthrough pain ondansetron HCl 4 mg tablet 4 mg PO Q8H Qty: 14 0RF diphenhydramine HCl [Benadryl] 25 mg capsule 25 mg PO Q8H PRN (Reason: nausea and vomiting) Qty: 14 0RF ketorolac 10 mg tablet 10 mg PO Q8H Qty: 14 0RF Rx Instructions: First dose given in the ER by IV and patient tolerated well ibuprofen 400 mg tablet 400 mg PO Q6H PRN (Reason: pain) Qty: 28 0RF cyclobenzaprine 10 mg tablet 10 mg PO TID PRN (Reason: pain) Qty: 18 0RF Rx Instructions: side effect is drowsiness. Do not take at work or while driving. ondansetron 4 mg tablet,disintegrating 4 mg PO Q6H Qty: 14 0RF cefuroxime axetil 250 mg tablet 250 mg PO BID 7 Days Qty: 14 0RF Paxlovid 300 mg (150 mg x 2)-100 mg tablets,dose pack See Rx Instructions .ROUTE .COMPLEX Qty: 30 0RF Rx Instructions: take TWO 150 mg tablets of nirmatrelvir with ONE 100 mg tablet of ritonavir twice daily for 5 days lorazepam 1 mg tablet 1 mg PO TID PRN (Reason: anxiety) Qty: 10 0RF Rx Instructions: Patient may ask for partial fill ondansetron 4 mg tablet,disintegrating 4 mg PO DAILY PRN (Reason: nausea and vomiting) 5 Days Qty: 14 0RF PNV #[id number] 30 mg iron-10 mg iron-1 mg capsule 1 cap PO DAILY Qty: 60 0RF Print Language: Choose Not To Answer
--- NOTE | 2024-03-20 20:08 | MHC.EDTECH ---
Patient brought into triage area,labs,and urine collected and sent to lab
[2024-03-20 20:14] LABS: MANUAL DIFF FLAG NO
[2024-03-20 20:22] LABS: Basophils Percent Auto 0.3 % (0-2); Eosinophils Absolute Auto 0.4 X10*3/uL (0.0-0.4); Hemoglobin 13.6 g/dl (12.0-16.0); Imm Gran Abs Auto 0.04 X10*3/uL (0.00-0.03); Imm Gran Pct Auto 0.3 % (0.0-0.4); Lymphocytes Absolute Auto 1.2 X10*3/uL (1.2-4.9); Lymphocytes Percent Auto 9.9 % (20-40); Mean Corpuscular Hemoglobin 30.4 pg (27.0-33.0); Mean Corpuscular Volume 89.5 fL (80.0-98.0); Mean Platelet Volume 8.7 fL (9.4-12.3); Monocytes Absolute Auto 0.8 X10*3/uL (0.1-1.2); Monocytes Percent Auto 6.5 % (2-11); Neutrophils Absolute Auto 9.5 x10*3/uL (2.0-8.3); Platelet Count 442 X10*3/uL (160-400); Red Blood Count 4.47 X10*6/uL (4.20-5.50); Red Cell Distribution Width 12.7 % (11.0-16.0); White Blood Count 11.8 X10*3/uL (4.8-10.8)
[2024-03-20 20:23] LABS: Appearance Urine Clear; Color Urine Yellow; Glucose Urine UA Negative (Negative); Leukocyte Esterase Urine Negative (Negative); Nitrite Urine Negative (Negative); PH 5.5 (5.0-9.0); Specific Gravity - Urine 1.025 (1.005-1.025); Urine Blood Negative (Negative); Urine Ketones Trace mg/dL (Negative); Urine Protein Negative (Neg-Trace)
[2024-03-20 20:28] LABS: Bacteria Urine Trace (None Seen); Hyaline Casts Urine 0-2 /LPF (0-2); RBC Urine 0-2 /HPF (0-2); WBC Urine 0-5 /HPF (0-5)
[2024-03-20 20:37] LABS: Alanine Aminotransferase 11 U/L (0-31); Albumin Level 4.3 g/dL (3.5-5.0); Alkaline Phosphatase 45 U/L (39-117); Anion Gap 7 (12-20); Aspartate Amino Transferase 23 U/L (5-31); Bilirubin Total 0.8 mg/dL (0.0-1.0); Blood Urea Nitrogen 8 mg/dL (9-16); Calcium 9.1 mg/dL (8.4-10.2); Carbon Dioxide 23 mmol/L (22-29); Chloride 115 mmol/L (96-108); Creatinine Clr Calc Pharmacy 142.9; Estimated Glomerular Filt Rate > 60; Glucose Random 84 mg/dL (60-115); Lipase 22 U/L (8-78); Sodium 141 mmol/L (135-145); Total Protein 7.5 g/dL (6.5-8.0)
[2024-03-20 20:39] LABS: HCG Quantitative < 2 mIU/mL
[2024-03-20 23:27] VITALS: BP 94/53; PULSE 89; RESP 16; TEMP 37.1; O2SAT 98
[2024-03-21] MEDS: Ketorolac Tromethamine 15 MG/ML VIAL IVPUSH (00:44)
[2024-03-21] MEDS: 0.9 % Sodium Chloride 1,000 ML 999 ML IV (00:44)
[2024-03-21] MEDS: ondansetron HCL 4 MG/2 ML VIAL IVPUSH (00:44)
[2024-03-21 01:34] VITALS: BP 91/54; PULSE 96; RESP 16; TEMP 36.9; O2SAT 99
[2024-03-21 01:53] VITALS: BP 91/54; PULSE 96; RESP 16; TEMP 36.9; O2SAT 99
== END 2024-03-21 01:53 | disposition home or self-care (01) ==
PROVIDERS: Physician Assistant; Emergency Provider Emergency Medicine Emergency Medical Services
DX: B34.9 Viral infection, unspecified (principal); R10.2 Pelvic and perineal pain; R11.2 Nausea with vomiting, unspecified; M79.10 Myalgia, unspecified site; R19.7 Diarrhea, unspecified; Z79.899 Other long term (current) drug therapy
CPT/HCPCS: 36415; 80053; 81001; 83690; 84702; 85025; 96374; 96375; 99283; 99284; J1885; J2405

== ENCOUNTER 2024-03-26 23:28 | Emergency (ER) | payer MEDICAID, SELFPAY ==
[2024-03-26 23:30] VITALS: BP 107/59; PULSE 108; RESP 20; TEMP 39.3; O2SAT 100; BMI 20.3
[2024-03-26] MEDS: Acetaminophen 325 MG TABLET 650 MG PO (23:43)
[2024-03-26] MEDS: Ondansetron ODT 4 MG TAB.RAPDIS TRANSLINGU (23:43)
--- OUTSIDE RECORDS SUMMARY | 2024-03-26 23:55 | XMS_ITS | Clinical Summary ---
Author Organization [id number] ity Address [address] [place] [address] Care Team Providers Care General Maintenance Helper Name Role Phone Unavailable Primary Care Provider Unavailabl e Social History Tobacco Use Types Packs/Day Years Used Date Smoking Tobacco: Never Assessed Sex and Gender Information Value Date Recorded Sex Assigned at Not on file Gender Identity Not on file Sexual Orientation Not on file Plan of Treatment Health Maintenance Due Date Last Done Comments Gonorrhea/Chlamydia Screening 2000 HPV Vaccines (1 - 3-dose series) 12/06/2015 DTaP,Tdap,and Td Vaccines (1 - Tdap) 12/06/2019 Hepatitis B Vaccines (1 of 3 - 19+ 3-dose series) 12/06/2019 Cervical Cancer Screening: P ap Smear 2021 Depression Screening 02/02/2022 HIV Screening 02/02/2022 Hepatitis C Screening 02/02/2022 Social Influencers of Health Screening 02/02/2022 COVID-19 Vaccine (2023-2 5 season) 2023 Influenza Vaccine (#1) 2023 HIB Vaccines Aged Out No longer eligi ble based on patient's age to complete this topic Hepatitis A Vaccines Aged Out No long er eligible based on patient's age to complete this topic IPV Vaccines Aged Out No longer eligi ble based on patient's age to complete this topic MMR Vaccines Aged Out No longer eligi ble based on patient's age to complete this topic Meningococcal ACWY Vaccine Aged Out N o longer eligible based on patient's age to complete this topic Pneumococcal Vaccine: Pediat rics (0 to 5 Years) and At-Risk Patients (6 to 64 Years) Aged Out No longer eligible b ased on patient's age to complete this topic RSV Immunization Patients Un norma 20 months Aged Out No longer eligible b ased on patient's age to complete this topic Varicella Vaccines Aged Out No longer eligible based on patient's age to complete this topic
--- OUTSIDE RECORDS SUMMARY | 2024-03-26 23:55 | XMS_ITS | Clinical Summary ---
Author Organization [employer] Address [address] [place] [address] Care Team Providers Care Clinical Support Tech Name Role Phone Unavailable Primary Care Provider Unavailabl e Allergies No known active allergies Social History Tobacco Use Types Packs/Day Years Used Date Smoking Tobacco: Never Passive Smoke Exposure: Never Smokeless Tobacco: Never Tobacco Cessation:Counseling Given: Not Answered Comments Unknown Sex and Gender Information Value Date Recorded Sex Assigned at Female 01/03/2022 10:18 AM EDT Legal Sex Female 10:18 AM EDT Gender Identity Female 04/14/2022 2:56 PM EST Sexual Orientation Don't know 04/18/2022 2: 40 PM EST Last Filed Vital Signs Vital Sign Reading Time Taken Comments Blood Pressure 114/73 04/18/2022 3:50 PM EST Pulse 85 04/18/2022 3:50 PM EST Temperature 36.9 ??C (98.4 ??F) 04/18/2022 3:50 PM ES T Respiratory Rate 14 04/18/2022 3:50 PM EST Oxygen Saturation 99% 04/18/2022 3:50 PM EST Inhaled Oxygen Concentration - - Weight 49.9 kg (110 lb) 04/18/2022 3:50 PM EST Height - - Body Mass Index - - Plan of Treatment Health Maintenance Due Date Last Done Comments Chlamydia and Gonorrhea Screening 2000 Depression Screening 2000 HIV Screening 2000 SDOH Screening 2000 Alcohol/Substance Use Screening 2012 HPV Vaccines (1 - 3-dose series) 12/06/2015 Hepatitis C Screening 2018 DTaP/Tdap/Td Vaccines (1 - Tdap) 12/06/2019 Hepatitis B Vaccines (1 of 3 - 19+ 3-dose series) 12/06/2019 Pap Smear 2021 Tobacco Screening 04/18/2023 04/18/2022 COVID-19 Vaccine (1 - 2023-2 5 season) 2023 Influenza Vaccine (#1) 2023 Zoster Vaccines (1 of 2) 2050 RSV Patients and Pa tients Aged 60 years or older (1 - 1-dose 75+ series) 12/06/2075 HIB Vaccines Aged Out No longer eligi ble based on patient's age to complete this topic Hepatitis A Vaccines Aged Out No long er eligible based on patient's age to complete this topic IPV Vaccines Aged Out No longer eligi ble based on patient's age to complete this topic Meningococcal Vaccine Aged Out No aashish haseeb eligible based on patient's age to complete this topic Pneumococcal Vaccine: Pediat rics (0 to 5 Years) and At-Risk Patients (6 to 64 Years) Aged Out No longer eligi ble based on patient's age to complete this topic RSV under 20 months Aged Out No longe r eligible based on patient's age to complete this topic Rotavirus Vaccines Aged Out No longer eligible based on patient's age to complete this topic Insurance
[2024-03-27 00:30] LABS: Influenza A PCR POSITIVE (Negative); Influenza B PCR NEGATIVE (Negative); Resp Syncy Virus RNA Qual PCR NEGATIVE (Negative); SARS COV2 PCR INHOUSE NEGATIVE (Negative)
--- NOTE | 2024-03-27 04:45 | ED_ITS ---
HPI - General Adult General Chief complaint: Nausea/Vomiting/Diarrhea Stated complaint: fever, n/v/d Time Seen by Provider: 03/27/24 04:45 History of Present Illness ED Provider: Yolis WILSON narrative: The patient is a 23-year-old female who has been feeling unwell for a few weeks. She was seen here on March 13 complaining of nausea, vomiting, and diarrhea. She was thought to have a gastroenteritis. Additionally she had a serum beta HCG at 15 with a negative urine test. She returned to your 1 week ago on March 20. Again she had nausea, vomiting, diarrhea, myalgias, and arthralgias. At that time she had a negative serum beta hCG. Her viral testing was negative. She was again thought to have a nonspecific viral syndrome. She was discharged with prescriptions for ibuprofen, acetaminophen, and ondansetron. She may have been getting slightly better from the symptoms last week but about 24 hours she started to feel much worse. She again presents with nausea, vomiting, diarrhea, body aches. She also has a had a cough. The patient is quite certain she has not become since her last ER visit. Related Data Previous Rx's ?Medication ?Instructions ?Recorded acetaminophen 650 mg 650 mg PO Q8H #60 tabs 09/02/20 tablet,extended release ibuprofen 800 mg tablet 800 mg PO Q8H #60 tabs 09/02/20 oxycodone 5 mg capsule 5 mg PO Q6H PRN pain #10 caps 09/02/20 cyclobenzaprine 10 mg tablet 10 mg PO TID PRN pain #18 tabs 02/02/21 ibuprofen 400 mg tablet 400 mg PO Q6H PRN pain #28 tabs 02/02/21 diphenhydramine HCl 25 mg capsule 25 mg PO Q8H PRN nausea and 04/26/22 (Benadryl) vomiting #14 caps ketorolac 10 mg tablet 10 mg PO Q8H #14 tabs 04/26/22 ondansetron HCl 4 mg tablet 4 mg PO Q8H #14 tabs 04/26/22 ondansetron 4 mg disintegrating 4 mg PO Q6H #14 tabs 05/10/22 tablet cefuroxime axetil 250 mg tablet 250 mg PO BID 7 days #14 tabs 05/15/22 nirmatrelvir 300 mg (150 mg See Rx Instructions PO .COMPLEX 02/10/23 x2)-ritonavir 100 mg tablet,dose #30 ea pack (Paxlovid) lorazepam 1 mg tablet 1 mg PO TID PRN anxiety #10 tabs 04/03/23 ondansetron 4 mg disintegrating 4 mg PO DAILY PRN nausea and 03/13/24 tablet vomiting 5 days #14 tabs vitamin#30 30 mg iron-10 1 cap PO DAILY #60 caps 03/13/24 mg iron-folic acid 1 mg-omg3 capsule acetaminophen 500 mg tablet 1,000 mg (2 x 500 mg) PO Q6H PRN 03/21/24 (Tylenol Extra Strength) fever or pain #20 tabs ibuprofen 400 mg tablet 400 mg PO TID PRN fever or pain 03/21/24 #30 tabs ondansetron 4 mg disintegrating 4 mg PO Q6-8H PRN nausea and 03/21/24 tablet vomiting #14 tabs ibuprofen 400 mg tablet 400 mg PO Q6H PRN pain #14 tabs 03/27/24 ondansetron 4 mg disintegrating 4 mg PO Q6H PRN nausea and 03/27/24 tablet vomiting #10 tabs oseltamivir 75 mg capsule 75 mg PO BID 5 days #10 caps 03/27/24 Allergies Allergy/AdvReac Type Severity Reaction Status Date / Time No Known Allergies Allergy Verified 03/26/24 23:33 Review of Systems Review of Systems: Yes all other systems are reviewed and are negative [facility] Family History Family History Mother Cancer Social History Social History Alcohol intake: current Alcohol intake frequency: holidays/special occasions only Patient Tobacco Use Status: Never used Tobacco Substance Use Type: Marijuana Advance Directives: No Advance Directives Information Provided: Yes Do you have a plan to hurt others: No Plan Physical Exam ED Vital Signs: Vital Signs - 24 hr 03/26/24 23:30 03/27/24 04:46 03/27/24 06:22 Temperature 102.8 F H 100.0 F 99.9 F Pulse Rate 108 H 96 98 Respiratory Rate 20 20 16 Blood Pressure 107/59 L 124/82 90/56 L Pulse Oximetry 100 100 98 Oxygen Delivery Method Room Air Room Air Room Air 03/27/24 07:38 Temperature 99.9 F Pulse Rate 98 Respiratory Rate 16 Blood Pressure 90/56 L Pulse Oximetry 98 Oxygen Delivery Method BMI result Body Mass Index 20.3 Const Other: The patient is awake and alert. She was complaining that she felt very unwell. She did not seem obviously acutely ill however. HENMT Other: Face is symmetrical. Mucous membranes moist. Eyes General: appearance normal, both eyes and all related structures Neck Neck: Yes full ROM and Yes no lymphadenopathy Resp Effort & Inspection: normal respiratory effort Auscultation: clear to auscultation bilaterally Cardio Rate: regular rate Rhythm: regular rhythm Heart sounds: S1 normal heart sound present and S2 normal heart sound present GI Other: Abdomen is soft and nontender Skin Other: Skin is pale and dry Neuro Other: The patient was awake and alert. Mental status was normal. Cranial nerves are grossly intact. She moves her extremities symmetrically and appropriately. Extrem Other: No peripheral edema Medications Administered Discontinued Medications Generic Name Dose Route Start Last Admin Trade Name Neto PRN Reason Stop Dose Admin Acetaminophen 650 mg 03/26/24 23:40 03/26/24 23:43 Acetaminophen 325 Mg Tablet PO 03/26/24 23:41 650 mg ONCE ONE Administration Albuterol Sulfate 4 puff 03/27/24 04:54 03/27/24 05:29 Albuterol Sulfate 90 Mcg 8 Gm Inhaler INHALE 03/27/24 04:55 4 puff ONCE ONE Administration Acetaminophen 1,000 mg in 100 mls @ 400 mls/hr 03/27/24 05:14 03/27/24 07:08 Ofirmev IV 03/27/24 05:28 Infused ONCE ONE Infusion Sodium Chloride 1,000 mls @ 999 mls/hr 03/27/24 05:15 03/27/24 07:08 Ns IV 03/27/24 06:15 Infused .Q1H1M MARISA Infusion Ketorolac Tromethamine 10 mg 03/27/24 05:14 03/27/24 05:22 Ketorolac Tromethamine 15 Mg/Ml Vial IVPUSH 03/27/24 05:15 10 mg ONCE ONE Administration Ondansetron HCl 4 mg 03/26/24 23:36 03/26/24 23:43 Ondansetron Odt 4 Mg Tab.Rapdis TRANSLINGU 03/26/24 23:37 4 mg ONCE ONE Administration Oseltamivir Phosphate 75 mg 03/27/24 04:51 03/27/24 05:22 Oseltamivir Phosphate 75 Mg Capsule PO 03/27/24 04:52 75 mg ONCE ONE Administration Medical Decision Making Medical Decision Making [facility] Narrative: The patient is a 23-year-old female who presents with complaints of diffuse body aches and a sense of fever and nausea and vomiting. She has had 2 ER visits recently with some similar symptoms but she reports that she is worse today. She is testing positive for the flu today. Specifically she is testing positive for influenza. She has not previously tested positive for influenza. She believes she got considerably worse yesterday so I suspect that she probably started getting sick with influenza yesterday. Given her degree of discomfort I will start her on oral oseltamivir. She felt considerably better after a dose of IV ketorolac, a dose of IV acetaminophen, and a L of fluid. She will be discharged with a prescription for oseltamivir and ibuprofen and ondansetron. Lab Data Labs: Lab Results 03/26/24 Range/Units 23:46 Influenza Type A (PCR) POSITIVE A (Negative) Influenza Type B (PCR) NEGATIVE (Negative) RSV RNA Qual (PCR) NEGATIVE (Negative) SARS-CoV-2 RNA (RT-PCR) NEGATIVE (Negative) Discharge Plan Discharge Clinical Impression: Influenza A Patient Disposition: Home, Self-Care Instructions: Influenza (ED) Additional Instructions: You have tested positive for influenza today (also known as ?the flu ). Having the flu can be very unpleasant. You has been started on a medication called oseltamivir that may help reduce the severity of the symptoms of the flu. Please take this medication 2 times a day, approximately every 12 hours. Next dose this evening. You may take ibuprofen every 6 hours as needed for discomfort. You may also use [id number] acetaminophen (Tylenol) as needed in addition to ibuprofen. I have also sent a prescription for ondansetron (Zofran). to your pharmacy which you may use as needed for nausea. Drink lot of fluids. Chicken soup might be good. Please work on getting a primary care doctor. Return to the emergency room if significantly worse. Prescriptions: New oseltamivir 75 mg capsule 75 mg PO BID 5 Days Qty: 10 0RF ibuprofen 400 mg tablet 400 mg PO Q6H PRN (Reason: pain) Qty: 14 0RF ondansetron 4 mg tablet,disintegrating 4 mg PO Q6H PRN (Reason: nausea and vomiting) Qty: 10 0RF No Action ibuprofen 800 mg tablet 800 mg PO Q8H Qty: 60 1RF acetaminophen 650 mg tablet extended release 650 mg PO Q8H Qty: 60 1RF oxycodone 5 mg capsule 5 mg PO Q6H PRN (Reason: pain) Qty: 10 0RF Rx Instructions: Take in addition to ibuprofen and tylenol as needed for breakthrough pain ondansetron HCl 4 mg tablet 4 mg PO Q8H Qty: 14 0RF diphenhydramine HCl [Benadryl] 25 mg capsule 25 mg PO Q8H PRN (Reason: nausea and vomiting) Qty: 14 0RF ketorolac 10 mg tablet 10 mg PO Q8H Qty: 14 0RF Rx Instructions: First dose given in the ER by IV and patient tolerated well ibuprofen 400 mg tablet 400 mg PO Q6H PRN (Reason: pain) Qty: 28 0RF cyclobenzaprine 10 mg tablet 10 mg PO TID PRN (Reason: pain) Qty: 18 0RF Rx Instructions: side effect is drowsiness. Do not take at work or while driving. ondansetron 4 mg tablet,disintegrating 4 mg PO Q6H Qty: 14 0RF cefuroxime axetil 250 mg tablet 250 mg PO BID 7 Days Qty: 14 0RF Paxlovid 300 mg (150 mg x 2)-100 mg tablets,dose pack See Rx Instructions .ROUTE .COMPLEX Qty: 30 0RF Rx Instructions: take TWO 150 mg tablets of nirmatrelvir with ONE 100 mg tablet of ritonavir twice daily for 5 days lorazepam 1 mg tablet 1 mg PO TID PRN (Reason: anxiety) Qty: 10 0RF Rx Instructions: Patient may ask for partial fill ondansetron 4 mg tablet,disintegrating 4 mg PO DAILY PRN (Reason: nausea and vomiting) 5 Days Qty: 14 0RF PNV #[id number] [id number] 30 mg iron-10 mg iron-1 mg capsule 1 cap PO DAILY Qty: 60 0RF acetaminophen [Tylenol Extra Strength] 500 mg tablet 1,000 mg PO Q6H PRN (Reason: fever or pain) Qty: 20 0RF ibuprofen 400 mg tablet 400 mg PO TID PRN (Reason: fever or pain) Qty: 30 0RF ondansetron 4 mg tablet,disintegrating 4 mg PO Q6-8H PRN (Reason: nausea and vomiting) Qty: 14 0RF Interventions: ED Discharge Assessment Last Done: 03/27/24 07:38 Discharge Date/Time: 03/27/24 07:39 Print Language: Sudanese
[2024-03-27 04:46] VITALS: BP 124/82; PULSE 96; RESP 20; TEMP 37.8; O2SAT 100
[2024-03-27] MEDS: Acetaminophen 1,000 MG/100 ML PIGGYBACK 400 MG IV (05:22)
[2024-03-27] MEDS: Oseltamivir Phosphate 75 MG CAPSULE PO (05:22)
[2024-03-27] MEDS: Ketorolac Tromethamine 15 MG/ML VIAL 10 MG IVPUSH (05:22)
[2024-03-27] MEDS: Albuterol Sulfate 90 MCG 8 GM INHALER 4 PUFF INHALE (05:29)
[2024-03-27] MEDS: 0.9 % Sodium Chloride 1,000 ML 999 ML IV (05:40)
[2024-03-27 06:22] VITALS: BP 90/56; PULSE 98; RESP 16; TEMP 37.7; O2SAT 98
[2024-03-27 07:38] VITALS: BP 90/56; PULSE 98; RESP 16; TEMP 37.7; O2SAT 98
== END 2024-03-27 07:39 | disposition home or self-care (01) ==
PROVIDERS: Emergency Provider Emergency Medicine
DX: J10.1 Influenza due to other identified influenza virus with other respiratory manifestations (principal); R11.2 Nausea with vomiting, unspecified; R19.7 Diarrhea, unspecified; R05.9 Cough, unspecified; Z03.818 Encounter for observation for suspected exposure to other biological agents ruled out; Z79.899 Other long term (current) drug therapy
CPT/HCPCS: 0241U; 96365; 96366; 96375; 99284; J0131; J1885

== ENCOUNTER 2024-07-03 00:39 | Emergency (ER) | payer MEDICAID, SELFPAY ==
--- NOTE | ~2024-07-03 | XR_ITS ---
CLINICAL HISTORY: sob CHEST X-RAY FRONTAL AND LATERAL VIEWS COMPARISON: 03/13/2024. FINDINGS: Frontal and lateral views of the chest were performed. Lateral view is rotated, Limiting assessment. The cardiac size and mediastinal silhouette are within normal limits. The lungs are clear. There are no acute infiltrates or pleural effusions. There is no pneumothorax. IMPRESSION: 1. No acute disease. This document has been electronically signed by: Jonel Adams M.D. on 07/03/2024 02:54:46
[2024-07-03 00:42] VITALS: BP 123/81; PULSE 81; RESP 20; TEMP 36.4; O2SAT 98; BMI 20.9
--- NOTE | 2024-07-03 00:44 | ECG_ITS ---
Test Reason : DYSPNEA Blood Pressure : */* mmHG Vent. Rate : 68 BPM Atrial Rate : 68 BPM P-R Int : 162 ms QRS Dur : 84 ms QT Int : 366 ms P-R-T Axes : 83 84 17 degrees QTcB Int : 389 ms Normal sinus rhythm Normal ECG When compared with ECG of 13-Mar-2024 07:10, T wave inversion no longer evident in Anterior leads Referred By: Generic ED Physician Electronically Signed By: Sergio Jackson
[2024-07-03 00:56] LABS: MANUAL DIFF FLAG NO
[2024-07-03 00:59] LABS: Basophils Absolute Auto 0.1 X10*3/uL (0.0-0.2); Basophils Percent Auto 0.6 % (0-2); Eosinophils Absolute Auto 0.1 X10*3/uL (0.0-0.4); Eosinophils Percent Auto 1.2 % (0-4); Hematocrit 39.1 % (37.0-47.0); Hemoglobin 13.3 g/dl (12.0-16.0); Imm Gran Abs Auto 0.03 X10*3/uL (0.00-0.03); Imm Gran Pct Auto 0.4 % (0.0-0.4); Lymphocytes Absolute Auto 2.1 X10*3/uL (1.2-4.9); Lymphocytes Percent Auto 24.8 % (20-40); Mean Corpuscular Hemoglobin 30.2 pg (27.0-33.0); Mean Corpuscular Volume 88.9 fL (80.0-98.0); Mean Platelet Volume 8.9 fL (9.4-12.3); Monocytes Absolute Auto 0.5 X10*3/uL (0.1-1.2); Monocytes Percent Auto 6.2 % (2-11); Neutrophils Absolute Auto 5.6 x10*3/uL (2.0-8.3); Neutrophils Percent Auto 66.8 % (45-73); Platelet Count 361 X10*3/uL (160-400); Red Cell Distribution Width 13.3 % (11.0-16.0); White Blood Count 8.4 X10*3/uL (4.8-10.8)
[2024-07-03 01:20] LABS: Alkaline Phosphatase 43 U/L (39-117)
[2024-07-03 01:27] LABS: Alanine Aminotransferase 17 U/L (0-31); Albumin Level 4.1 g/dL (3.5-5.0); Anion Gap 14 (12-20); Aspartate Amino Transferase 25 U/L (5-31); Bilirubin Total 0.5 mg/dL (0.0-1.0); Blood Urea Nitrogen 11 mg/dL (9-16); Calcium 9.7 mg/dL (8.4-10.2); Carbon Dioxide 24 mmol/L (22-29); Chloride 107 mmol/L (96-108); Creatinine Clr Calc Pharmacy 81.9; Estimated Glomerular Filt Rate > 60; Glucose Random 122 mg/dL (60-115); Potassium 3.6 mmol/L (3.3-5.1); Sodium 141 mmol/L (135-145); Total Protein 7.1 g/dL (6.5-8.0); Troponin-I High Sensitivity < 2.7 ng/L (<3.5-17.0)
--- NOTE | 2024-07-03 03:18 | ED_ITS ---
HPI - General Adult General Chief complaint: Dyspnea Stated complaint: SoB Time Seen by Provider: 07/03/24 02:41 Source: patient Limitations: no limitations History of Present Illness ED Provider: Yulia Kidd PA-C HPI narrative: 23-year-old female presents with chest pain. Patient states she is having upper central chest discomfort worse with movement and palpation of chest wall. Patient developed pain after folding laundry. Denies recent cough or cold symptoms, no trauma, no new heavy lifting or exercise. Related Data Previous Rx's ?Medication ?Instructions ?Recorded acetaminophen 650 mg 650 mg PO Q8H #60 tabs 09/02/20 tablet,extended release ibuprofen 800 mg tablet 800 mg PO Q8H #60 tabs 09/02/20 oxycodone 5 mg capsule 5 mg PO Q6H PRN pain #10 caps 09/02/20 cyclobenzaprine 10 mg tablet 10 mg PO TID PRN pain #18 tabs 02/02/21 ibuprofen 400 mg tablet 400 mg PO Q6H PRN pain #28 tabs 02/02/21 diphenhydramine HCl 25 mg capsule 25 mg PO Q8H PRN nausea and 04/26/22 (Benadryl) vomiting #14 caps ketorolac 10 mg tablet 10 mg PO Q8H #14 tabs 04/26/22 ondansetron HCl 4 mg tablet 4 mg PO Q8H #14 tabs 04/26/22 ondansetron 4 mg disintegrating 4 mg PO Q6H #14 tabs 05/10/22 tablet cefuroxime axetil 250 mg tablet 250 mg PO BID 7 days #14 tabs 05/15/22 nirmatrelvir 300 mg (150 mg See Rx Instructions PO .COMPLEX 02/10/23 x2)-ritonavir 100 mg tablet,dose #30 ea pack (Paxlovid) lorazepam 1 mg tablet 1 mg PO TID PRN anxiety #10 tabs 04/03/23 ondansetron 4 mg disintegrating 4 mg PO DAILY PRN nausea and 03/13/24 tablet vomiting 5 days #14 tabs vitamin#30 30 mg iron-10 1 cap PO DAILY #60 caps 03/13/24 mg iron-folic acid 1 mg-omg3 capsule acetaminophen 500 mg tablet 1,000 mg (2 x 500 mg) PO Q6H PRN 03/21/24 (Tylenol Extra Strength) fever or pain #20 tabs ibuprofen 400 mg tablet 400 mg PO TID PRN fever or pain 03/21/24 #30 tabs ondansetron 4 mg disintegrating 4 mg PO Q6-8H PRN nausea and 03/21/24 tablet vomiting #14 tabs ibuprofen 400 mg tablet 400 mg PO Q6H PRN pain #14 tabs 03/27/24 ondansetron 4 mg disintegrating 4 mg PO Q6H PRN nausea and 03/27/24 tablet vomiting #10 tabs oseltamivir 75 mg capsule 75 mg PO BID 5 days #10 caps 03/27/24 ibuprofen 600 mg tablet 600 mg PO Q6H PRN pain #20 tabs 07/03/24 Allergies Allergy/AdvReac Type Severity Reaction Status Date / Time No Known Allergies Allergy Verified 07/03/24 00:43 Review of Systems 2 Review of Systems: Yes all other systems are reviewed and are negative Constitutional: Constitutional: Denies fatigue and Denies fever(s) Cardiovascular: Cardiovascular: Reports chest pain and Denies dyspnea Respiratory: Respiratory: Denies cough and Denies dyspnea Endocrine: Endocrine: Denies fatigue [facility] Past Medical History Attestation statement: The following information was validated with the patient. Family History Family History Mother Cancer Social History Social History Alcohol intake: current Alcohol intake frequency: holidays/special occasions only Patient Tobacco Use Status: Never used Tobacco Substance Use Type: Marijuana Advance Directives: No Advance Directives Information Provided: Yes Physical Exam ED Vital Signs: Vital Signs - 24 hr 07/03/24 00:42 Temperature 97.6 F Pulse Rate 81 Respiratory Rate 20 Blood Pressure 123/81 Pulse Oximetry 98 Oxygen Delivery Method Room Air BMI result Body Mass Index 20.9 Const Other: Alert well-appearing Orientation/consciousness: patient oriented x3 Chest Other: Central upper chest wall is tender to palpation without any deformity, no overlying erythema or ecchymosis Resp Effort & Inspection: normal respiratory effort Cardio Other: Normal peripheral perfusion Skin Other: Warm dry no rash Neuro General: patient oriented x3, gait normal, no focal motor deficits and CN's II- XI intact bilaterally Psych Other: Cooperative Medical Decision Making Medical Decision Making [facility] Narrative: 23-year-old female presents with chest pain. Patient states she is having upper central chest discomfort worse with movement and palpation of chest wall. Patient developed pain after folding laundry. Denies recent cough or cold symptoms, no trauma, no new heavy lifting or exercise. No chronic issues History: Per patient I have considered the following differential diagnoses: ACS, PE, chest wall strain, costochondritis Plan: Screening labs including cardiac enzymes EKG and chest x-ray were obtained, her assessment is negative. She has no risk factors for coronary artery disease her heart score is 0. Thought about PE, she states her discomfort is somewhat worse with deep inspiration, however she is PERC negative. She has chest wall strain. Thought about costochondritis, however she has had no preceding viral syndrome. I have independently reviewed the following tests: Labs: No leukocytosis, not anemic, no electrolyte abnormality noted, troponin negative EKG: Normal sinus rhythm, rate of 68, no ischemic changes no ectopy Chest x-ray:MPRESSION: 1. No acute disease. Lab Data 07/03/24 00:48 07/03/24 00:48 Labs: Lab Results 07/03/24 Range/Units 00:48 WBC 8.4 (4.8-10.8) X10*3/uL RBC 4.40 (4.20-5.50) X10*6/uL Hgb 13.3 (12.0-16.0) g/dl Hct 39.1 (37.0-47.0) % MCV 88.9 (80.0-98.0) fL MCH 30.2 (27.0-33.0) pg MCHC 34.0 (31.0-35.0) g/dl RDW 13.3 (11.0-16.0) % Plt Count 361 (160-400) X10*3/uL MPV 8.9 L (9.4-12.3) fL Immature Gran % (Auto) 0.4 (0.0-0.4) % Neut % (Auto) 66.8 (45-73) % Lymph % (Auto) 24.8 (20-40) % Winn % (Auto) 6.2 (2-11) % Eos % (Auto) 1.2 (0-4) % Baso % (Auto) 0.6 (0-2) % Lymph # (Auto) 2.1 (1.2-4.9) X10*3/uL Winn # (Auto) 0.5 (0.1-1.2) X10*3/uL Eos # (Auto) 0.1 (0.0-0.4) X10*3/uL Baso # (Auto) 0.1 (0.0-0.2) X10*3/uL Abs Immat Gran (auto) 0.03 (0.00-0.03) X10*3/uL Absolute Neuts (auto) 5.6 (2.0-8.3) x10*3/uL Absolute Nucleated RBC 0.000 (0.0-0.012) X10*3/uL Nucleated RBC % (auto) 0.0 (0.0-0.2) /100WBC Sodium 141 (135-145) mmol/L Potassium 3.6 (3.3-5.1) mmol/L Chloride 107 (96-108) mmol/L Carbon Dioxide 24 (22-29) mmol/L Anion Gap 14 (12-20) BUN 11 (9-16) mg/dL Creatinine 0.69 (0.5-1.4) mg/dL Estim Creat Clear Calc 81.9 Estimated GFR > 60 Random Glucose 122 H (60-115) mg/dL Calcium 9.7 D (8.4-10.2) mg/dL Total Bilirubin 0.5 (0.0-1.0) mg/dL AST 25 (5-31) U/L ALT 17 (0-31) U/L Alkaline Phosphatase 43 (39-117) U/L Troponin I High Sens < 2.7 (<3.5-17.0) ng/L Total Protein 7.1 (6.5-8.0) g/dL Albumin 4.1 (3.5-5.0) g/dL Discharge Plan Discharge Clinical Impression: Chest wall pain Patient Disposition: Home, Self-Care Instructions: Chest Pain (ED) Additional Instructions: Your symptoms and exam are consistent with chest wall pain. See home care instructions. Use the ibuprofen 600 mg taken every 6 hours with food for your discomfort. All of your screening labs including a cardiac enzymes were normal. There were no concerning changes on the EKG. The chest x-ray is clear. Follow up with primary care as needed. Prescriptions: New ibuprofen 600 mg tablet 600 mg PO Q6H PRN (Reason: pain) Qty: 20 0RF No Action ibuprofen 800 mg tablet 800 mg PO Q8H Qty: 60 1RF acetaminophen 650 mg tablet extended release 650 mg PO Q8H Qty: 60 1RF oxycodone 5 mg capsule 5 mg PO Q6H PRN (Reason: pain) Qty: 10 0RF Rx Instructions: Take in addition to ibuprofen and tylenol as needed for breakthrough pain ondansetron HCl 4 mg tablet 4 mg PO Q8H Qty: 14 0RF diphenhydramine HCl [Benadryl] 25 mg capsule 25 mg PO Q8H PRN (Reason: nausea and vomiting) Qty: 14 0RF ketorolac 10 mg tablet 10 mg PO Q8H Qty: 14 0RF Rx Instructions: First dose given in the ER by IV and patient tolerated well ibuprofen 400 mg tablet 400 mg PO Q6H PRN (Reason: pain) Qty: 28 0RF cyclobenzaprine 10 mg tablet 10 mg PO TID PRN (Reason: pain) Qty: 18 0RF Rx Instructions: side effect is drowsiness. Do not take at work or while driving. ondansetron 4 mg tablet,disintegrating 4 mg PO Q6H Qty: 14 0RF cefuroxime axetil 250 mg tablet 250 mg PO BID 7 Days Qty: 14 0RF Paxlovid 300 mg (150 mg x 2)-100 mg tablets,dose pack See Rx Instructions .ROUTE .COMPLEX Qty: 30 0RF Rx Instructions: take TWO 150 mg tablets of nirmatrelvir with ONE 100 mg tablet of ritonavir twice daily for 5 days oseltamivir 75 mg capsule 75 mg PO BID 5 Days Qty: 10 0RF ibuprofen 400 mg tablet 400 mg PO Q6H PRN (Reason: pain) Qty: 14 0RF ondansetron 4 mg tablet,disintegrating 4 mg PO Q6H PRN (Reason: nausea and vomiting) Qty: 10 0RF lorazepam 1 mg tablet 1 mg PO TID PRN (Reason: anxiety) Qty: 10 0RF Rx Instructions: Patient may ask for partial fill ondansetron 4 mg tablet,disintegrating 4 mg PO DAILY PRN (Reason: nausea and vomiting) 5 Days Qty: 14 0RF PNV #[id number] 30 mg iron-10 mg iron-1 mg capsule 1 cap PO DAILY Qty: 60 0RF acetaminophen [Tylenol Extra Strength] 500 mg tablet 1,000 mg PO Q6H PRN (Reason: fever or pain) Qty: 20 0RF ibuprofen 400 mg tablet 400 mg PO TID PRN (Reason: fever or pain) Qty: 30 0RF ondansetron 4 mg tablet,disintegrating 4 mg PO Q6-8H PRN (Reason: nausea and vomiting) Qty: 14 0RF Print Language: Grenadian
[2024-07-03] MEDS: Ibuprofen 600 MG TABLET PO (03:32)
[2024-07-03 03:43] VITALS: BP 123/78; PULSE 77; RESP 17; TEMP 36.7; O2SAT 100
[2024-07-03 03:45] VITALS: BP 123/78; PULSE 77; RESP 17; TEMP 36.7; O2SAT 100
== END 2024-07-03 03:45 | disposition home or self-care (01) ==
PROVIDERS: Emergency Provider Emergency Medicine Emergency Medical Services
DX: R07.89 Other chest pain (principal)
CPT/HCPCS: 36415; 71046; 80053; 84484; 85025; 93005; 99283; 99285

== ENCOUNTER → 2024-07-03 00:44 | Outpatient (BNV) | payer MEDICAID, SELFPAY | PROVIDERS: Emergency Provider Emergency Medicine Emergency Medical Services; Visit Provider Internal Medicine Cardiovascular Disease | DX: R06.09 Other forms of dyspnea (principal) | CPT/HCPCS: 93010 ==

== ENCOUNTER → 2024-07-03 00:50 | Outpatient (BNV) | payer MEDICAID, SELFPAY | PROVIDERS: Visit Provider Radiology Diagnostic Radiology | DX: R06.02 Shortness of breath (principal) | CPT/HCPCS: 71046 ==